=== PATIENT | female | born 1945 | race Caucasian/White ===

== ENCOUNTER 2017-12-30 14:28 | Observation (INO) | payer MEDICARE, OTHER ==
[2017-12-30] MEDS ORDERED: BABY ASPIRIN 81 MG CHEW PO ONE (14:51)
[2017-12-30] MEDS ORDERED: BABY ASPIRIN 81 MG CHEW ONE (14:56)
--- NOTE | 2017-12-30 15:03 | ERPHSYRPT ---
- History of Present Illness Time Seen by Provider: 12/30/17 14:46 Source: patient, family () Patient Subjective Stated Complaint: PT REPORTS SUDDEN ONSET OF WEAKNESS-BACK PAIN-PRESSURE IN CHEST-INCEASED SOB-LIGHTHEADED-"FUZZY FEELING"-STATES THAT SHE FEELS A LITTLE BETTER BUT STILL VERY WEAK DIZZY WITH MOVEMENT-DENIES RECENT ILLNESS-STATES THAT PAIN HAS SUBSIDED Triage Nursing Assessment: PT PALE WARM ET [id number] QUESTIONS CORRECTLY-RESP SLIGHTLY LABORED-ABLE TO SPEAK IN COMPLETE SENTENCES WITH EASE- NO FACIAL DROOP NOTED-MOVING ALL EXTREMITIES WITH EASE-PT GAIT UNSTEADY WHILE TRANSFERRING TO ER BED Physician History: CC: weakness Hx: 72 y/o patient of Dr Brittney Kerr. She has remote hx of PE after lumbar surgery and breast CA 20 years ago. She was at home and had a feeling of back aching, shortness of breath. The pain is gone. She feels overwhelming fatigue which continues. No fever, chills, cough, or injury. No abd pain. No chest pain. Timing/Duration: today Severity: moderate Allergies/Adverse Reactions: cephalexin [From Keflex] Allergy (Intermediate, Verified 12/30/17 14:50) Hives morphine Allergy (Intermediate, Verified 12/30/17 14:50) HTN Penicillins Allergy (Intermediate, Verified 12/30/17 14:50) Hives Sulfa (Sulfonamide Antibiotics) Allergy (Intermediate, Verified 12/30/17 14:50) Hives Home Medications: No Reportable Medications [No Reported Medications] 12/30/17 [History] Hx Tetanus, Diphtheria Vaccination/Date Given: Yes Hx Influenza Vaccination/Date Given: Yes (2016) Hx Pneumococcal Vaccination/Date Given: Yes Immunizations Up to Date: Yes - Review of Systems Constitutional: Fatigue, Malaise, Weakness (general), No Fever, No Chills Eyes: No Symptoms, No Vision Changes Respiratory: Dyspnea, No Cough Cardiac: No Chest Pain Abdominal/Gastrointestinal: No Abdominal Pain, No Nausea, No Vomiting Skin: No Rash Neurological: Dizziness (lightheadedness), No Focal Weakness, No Headache, No Parasthesia All Other Systems: Reviewed and Negative - Past Medical History Pertinent Past Medical History: Yes Musculoskeletal History: Osteoarthritis Female Reproductive Disorders: Breast Cancer Other Medical History: PMR - Past Surgical History Past Surgical History: Yes Musculoskeletal: Orthopedic Surgery Other Surgical History: BACK SURGERY, RADICAL BILATERAL MASTECTOMY - Social History Smoking Status: Former smoker Exposure to second hand smoke: No Drug Use: none Patient Lives Alone: No - Female History Hx Now: No - Nursing Vital Signs Nursing Vital Signs: Initial Vital Signs Temperature 97.4 F 12/30/17 14:42 Pulse Rate 79 12/30/17 14:42 Respiratory Rate 22 12/30/17 14:42 Blood Pressure 156/87 12/30/17 14:42 O2 Sat by Pulse Oximetry 98 12/30/17 14:42 Pain Scale Pain Intensity 1 - Physical Exam General Appearance: alert Eye Exam: PERRL/EOMI Ears, Nose, Throat Exam: normal ENT inspection, moist mucous membranes Neck Exam: normal inspection, non-tender, supple Respiratory Exam: normal breath sounds, lungs clear Cardiovascular Exam: regular rate/rhythm, No murmur Gastrointestinal/Abdomen Exam: soft, No tenderness, No distention Back Exam: normal inspection, No CVA tenderness, No vertebral tenderness Extremity Exam: normal inspection, normal range of motion, No calf tenderness Neurologic Exam: alert, oriented x 3, cooperative, sensation nml, No motor deficits Skin Exam: warm, dry, No rash SpO2 Interpretation: normal SpO2: 98 Oxygen Delivery: Room Air - Course Nursing assessment & vital signs reviewed: Yes EKG Interpreted by Me: RATE (76), Sinus Rhythm, NORMAL AXIS, LAFB, NORMAL INTERVALS (QTc 448), Non-specific ST Changes - Radiology Exams cxr X-ray Interpretation: Interpreted by me, Negative, Nml Mediastinum Ordered Tests: Active Orders 24 hr Category Date Time Status Steam Trap Man STAT Care 12/30/17 14:52 Active EKG-ER Only STAT Care 12/30/17 14:51 Active IV Insertion STAT Care 12/30/17 14:51 Active Pulse Oximetry (ED) STAT Care 12/30/17 14:51 Active CHEST 1 VIEW (PORTABLE) Stat Exams 12/30/17 14:52 Taken CBC W DIFF Stat Lab 12/30/17 15:00 Completed CMP Routine Lab 12/30/17 15:00 Completed D-DIMER QUANTITATION Stat Lab 12/30/17 15:00 Completed NT PRO BNP Routine Lab 12/30/17 15:00 Completed PROTIME WITH INR Stat Lab 12/30/17 15:00 Completed PTT Stat Lab 12/30/17 15:00 Completed TROPONIN Q3H Lab 12/30/17 15:00 Completed TROPONIN Q3H Lab 12/30/17 18:00 Ordered TROPONIN Q3H Lab 12/30/17 21:00 Ordered TROPONIN Q3H Lab 12/31/17 00:00 Ordered TROPONIN Q3H Lab 12/31/17 03:00 Ordered Medication Summary Discontinued Medications Generic Name Dose Route Start Last Admin Trade Name Natali PRN Reason Stop Dose Admin Aspirin 162 mg 12/30/17 14:51 12/30/17 14:57 Baby Aspirin 81 Mg Chew PO 12/30/17 14:52 162 mg STAT ONE Administration Aspirin Confirm 12/30/17 14:56 Baby Aspirin 81 Mg Chew Administered 12/30/17 14:57 Dose 162 mg .ROUTE .STSphere 3d-Osprey Spill Control ONE Lab/Rad Data: Laboratory Result Diagrams 12/30/17 15:00 12/30/17 15:00 Laboratory Results 12/30/17 12/30/17 12/30/17 Range/Units 15:00 15:00 15:00 WBC 5.9 (4.0-10.5) K/mm3 RBC 4.22 (4.1-5.4) M/mm3 Hgb 12.6 (12.0-16.0) gm/dl Hct 38.4 (35-47) % MCV 91.0 (78-100) fl MCH 29.9 (26-32) pg MCHC 32.8 (32-36) g/dl RDW 15.5 H (11.5-14.0) % Plt Count 248 (150-450) K/mm3 MPV 9.6 H (6-9.5) fl Gran % 58.6 (36.0-66.0) % Lymphocytes % 26.9 (24.0-44.0) % Monocytes % 9.7 (0.0-12.0) % Eosinophils % 4.1 (0.00-5.0) % Basophils % 0.7 (0.0-0.4) % Basophils # 0.04 (0-0.4) INR 1.13 (0.8-3.0) APTT 28.0 (25.3-37.0) SECONDS D-Dimer 307.16 (0-500) ng/mL Sodium 136 (136-145) mEq/L Potassium 3.6 (3.5-5.1) mEq/L Chloride 105 (98-107) mEq/L Carbon Dioxide 24.7 (21-32) mEq/L Anion Gap 10.3 (5-15) MEQ/L BUN 20 (9-20) mg/dL Creatinine 1.00 (0.55-1.30) mg/dl Estimated GFR 58 ML/MIN Glucose 132 H (70-110) MG/DL Calcium 9.4 (8.5-10.1) mg/dL Total Bilirubin 0.30 (0.2-1.0) mg/dL AST 20 (15-37) U/L ALT 17 (12-78) U/L Alkaline Phosphatase 82 (46-116) U/L Troponin I < 0.017 (0.000-0.056) ng/ml NT-Pro-B Natriuret Pep 146 H (0-125) pg/ml Serum Total Protein 7.1 (6.4-8.2) gm/dL Albumin 3.6 (3.4-5.0) g/dL - Progress Progress Note: 12/30/17 16:00 Stable and without symptoms at present. She did report chest pressure to nurse earlier. Studies reassuring. Will place in tele obs for serial troponins and further workup. Called Dr Cassandra Fuller (oc). Counseled pt/family regarding: lab results, diagnosis, need for follow-up, rad results - Departure Time of Disposition: 16:01 Departure Disposition: Observation (Tele) Clinical Impression: Chest pain, rule out acute myocardial infarction Condition: Stable Critical Care Time: No Referrals: GABE KERR [Primary Care Provider] -
[2017-12-30 15:25] LABS: INR 1.13 (0.8-3.0)
[2017-12-30 15:27] LABS: D-DIMER QUANTITATION 307.16 ng/mL (0-500)
[2017-12-30 15:31] LABS: BASOPHIL % 0.7 % (0.0-0.4); Basophil (Absolute #) 0.04 (0-0.4); Eosinophil % 4.1 % (0.00-5.0); Eosinophil (Absolute #) 0.24 (0-0.5); Granulocyte Absolute (ANC) 3.45 (1.4-6.9); Granulocytes % 58.6 % (36.0-66.0); Hematocrit 38.4 % (35-47); Hemoglobin 12.6 gm/dl (12.0-16.0); Lymphocyte (Absolute #) 1.58 (1.0-4.6); Lymphocytes % 26.9 % (24.0-44.0); Mean Corpuscular Hemoglobin 29.9 pg (26-32); Mean Corpuscular Hgb Concent. 32.8 g/dl (32-36); Mean Platelet Volume 9.6 fl (6-9.5); Monocyte (Absolute #) 0.57 (0.0-1.3); Monocytes % 9.7 % (0.0-12.0); Platelet Count 248 K/mm3 (150-450); Red Blood Count 4.22 M/mm3 (4.1-5.4); Red Cell Distribution Width 15.5 % (11.5-14.0); White Blood Count 5.9 K/mm3 (4.0-10.5)
[2017-12-30 15:37] LABS: ALBUMIN 3.6 g/dL (3.4-5.0); ALKALINE PHOSPHATASE 82 U/L (46-116); ANION GAP 10.3 MEQ/L (5-15); BLOOD UREA NITROGEN 20 mg/dL (9-20); CHLORIDE 105 mEq/L (98-107); Calcium 9.4 mg/dL (8.5-10.1); Carbon Dioxide 24.7 mEq/L (21-32); EST GLOMERULAR FILTRATION RATE 58 ML/MIN; Glucose 132 MG/DL (70-110); NT PRO BNP 146 pg/ml (0-125); Potassium 3.6 mEq/L (3.5-5.1); SGOT/AST 20 U/L (15-37); SGPT/ALT 17 U/L (12-78); SODIUM 136 mEq/L (136-145); Total Protein 7.1 gm/dL (6.4-8.2)
[2017-12-30 15:38] LABS: TROPONIN < 0.017 ng/ml (0.000-0.056)
--- NOTE | 2017-12-30 16:09 | XRAY ---
Indication: Short of breath. Back pain. Left breast cancer with mastectomy. Comparison: None Portable chest is clear. Heart and mediastinal structures within normal limits. Bony thorax intact with mild osteopenia and degenerative changes. Impression: Nonacute chest with chronic features.
[2017-12-30] MEDS ORDERED: Senokot-S Tablet PO PRN (17:18)
[2017-12-30] MEDS ORDERED: TYLENOL 325 MG PO PRN (17:18)
[2017-12-30] MEDS ORDERED: MILK OF MAGNESIA 30 ML PO PRN (17:18)
[2017-12-30] MEDS ORDERED: Zofran 4 MG/2 ML VIAL IV PRN (17:18)
[2017-12-30] MEDS ORDERED: MAALOX ES 30 ML UNIT DOSE PO PRN (17:18)
[2017-12-30] MEDS: Sodium Chloride 0.9% 10 ML FLUSH Syringe IV SCH (21:49)
[2017-12-30] MEDS: Pepcid 20 MG PO SCH (21:49)
[2017-12-31 04:16] LABS: Risk Ratio 3.1
[2017-12-31] MEDS: Sodium Chloride 0.9% 10 ML FLUSH Syringe IV SCH (05:32)
[2017-12-31] MEDS ORDERED: VITA-BEE WITH C PO SCH (10:00)
[2017-12-31] MEDS ORDERED: VITAMIN D PO SCH (10:00)
[2017-12-31] MEDS ORDERED: Ecotrin 325 MG PO SCH (10:00)
[2017-12-31] MEDS ORDERED: VITAMIN B COMPLEX PO SCH (10:00)
[2017-12-31] MEDS ORDERED: Vitamin E 400 UNIT SOFTGEL PO SCH (10:00)
[2017-12-31] MEDS ORDERED: VITAMIN E 1000 UNIT PO SCH (10:00)
[2017-12-31] MEDS: Pepcid 20 MG PO SCH (10:01)
--- NOTE | 2017-12-31 11:50 | PCM.SSS ---
History of Present Illness - Chief Complaint Chief Complaint: Chest Pain Rule out NC History of Present Illness: is a 72 year old female.She has remote hx of PE after lumbar surgery and breast CA 20 years ago. She was at home and had a feeling of back aching, shortness of breath. The pain is gone. She feels overwhelming fatigue which continues. No fever, chills, cough, or injury. No abd pain. No chest pain. - Review of Systems Constitutional: No Fever, No Chills Eyes: No Symptoms Ears, Nose, & Throat: No Symptoms Respiratory: No Cough, No Short Of Breath Cardiac: No Chest Pain, No Edema, No Syncope Abdominal/Gastrointestinal: No Abdominal Pain, No Nausea, No Vomiting, No Diarrhea Genitourinary Symptoms: No Dysuria Musculoskeletal: No Back Pain, No Neck Pain Skin: No Rash Neurological: No Dizziness, No Focal Weakness, No Sensory Changes Psychological: No Symptoms Endocrine: No Symptoms Hematologic/Lymphatic: No Symptoms Immunological/Allergic: No Symptoms Medications & Allergies Home Medications: Home Medication List Cholecalciferol (Vitamin D3) [Vitamin D3] 1,000 unit PO DAILY 12/30/17 [History Confirmed 12/30/17] Vitamin B Complex [B Complex] 1 each PO DAILY 12/30/17 [History Confirmed ] Vitamin E (Dl,Tocopheryl Acet) [Vitamin E] 1,000 unit PO DAILY 12/30/17 [ History Confirmed 12/30/17] Allergies/Adverse Reactions: Allergies Allergy/AdvReac Type Severity Reaction Status Date / Time cephalexin [From Keflex] Allergy Intermediate Hives Verified 12/30/17 14:50 morphine Allergy Intermediate HTN Verified 12/30/17 14:50 Penicillins Allergy Intermediate Hives Verified 12/30/17 14:50 Sulfa (Sulfonamide Allergy Intermediate Hives Verified 12/30/17 14:50 Antibiotics) - Past Medical History Past Medical History: Yes Neurological History: No Pertinent History ENT History: Cataracts Cardiac History: Deep Vein Thrombosis Respiratory History: No Pertinent History Endocrine Medical History: No Pertinent History Musculoskelatal History: Osteoarthritis GI Medical History: Esophageal Disorder, Ulcer History: No Pertinent History Pyscho-Social History: No Pertinent History Reproductive Disorders: Breast Cancer Comment: cataract surgery 2016, radical mast. Left breast 1997, Back Surgery/ ruptured disk L5 1994 - Female History Are you now?: No - Past Surgical History Past Surgical History: Yes Neuro Surgical History: No Pertinent History Cardiac History: No Pertinent History Respiratory Surgery: No Pertinent History GI Surgical History: No Pertinent History Genitourinary Surgical Hx: No Pertinent History Musculskeletal Surgical Hx: Other Female Surgical History: Mastectomy Other Surgical History: Right wrist broken 2010 - Social History Smoking Status: Former smoker Exposure to second hand smoke: No Alcohol: Rarely Drug Use: none - Physical Exam Vital Signs: Vital Signs - 24 hr Temp Pulse Resp BP Pulse Ox 12/31/17 08:00 98.5 F 74 14 121/70 97 12/31/17 04:00 97.9 F 68 16 127/69 95 12/31/17 00:00 97.8 F 71 16 111/62 96 12/30/17 20:00 98 F 76 16 115/68 94 L 12/30/17 17:41 97.3 F 73 20 154/79 97 12/30/17 17:11 97.3 F 73 20 154/79 97 12/30/17 17:09 97.3 F 73 20 154/79 97 12/30/17 16:40 68 16 122/76 97 12/30/17 16:01 98 12/30/17 15:24 75 18 138/83 12/30/17 14:59 98 12/30/17 14:42 97.4 F 79 22 156/87 98 General Appearance: no apparent distress, alert Neurologic Exam: alert, oriented x 3, cooperative, normal mood/affect, nml cerebellar function, nml station & gait, sensation nml, No motor deficits Eye Exam: PERRL/EOMI, eyes nml inspection Ears, Nose, Throat Exam: normal ENT inspection, TMs normal, pharynx normal, moist mucous membranes Neck Exam: normal inspection, non-tender, supple, full range of motion Respiratory Exam: normal breath sounds, lungs clear, No respiratory distress Cardiovascular Exam: regular rate/rhythm, normal heart sounds, normal peripheral pulses Gastrointestinal/Abdomen Exam: soft, normal bowel sounds, No tenderness, No mass Back Exam: normal inspection, normal range of motion, No CVA tenderness, No vertebral tenderness Extremity Exam: normal inspection, normal range of motion, pelvis stable Skin Exam: normal color, warm, dry, No rash Lymphatic Exam: No adenopathy Results - Labs Lab/Micro Results: Lab Results-Last 24 Hours 12/30/17 12/30/17 12/31/17 Range/Units 18:00 21:30 00:05 Troponin I < 0.017 < 0.017 < 0.017 (0.000-0.056) ng/ml Triglycerides (30-200) mg/dL Cholesterol (100-200) mg/dL LDL Cholesterol (5-99) mg/dL HDL Cholesterol (35-60) mg/dL Heart Disease Risk Ratio 12/31/17 12/31/17 Range/Units 03:00 03:15 Troponin I < 0.017 (0.000-0.056) ng/ml Triglycerides 82 (30-200) mg/dL Cholesterol 210 H (100-200) mg/dL LDL Cholesterol 123 H (5-99) mg/dL HDL Cholesterol 67 H (35-60) mg/dL Heart Disease Risk Ratio 3.1 - Other Procedures and Tests Respiratory Therapy 12/30/17 23:00 EKG ONCE 12/31/17 05:00 EKG ONCE 01/01/18 05:00 EKG ONCE 01/02/18 05:00 EKG ONCE Assessment/Plan (1) Chest pain, rule out acute myocardial infarction Current Visit: Yes Status: Acute Code(s): R07.9 - CHEST PAIN, UNSPECIFIED Hospital Summary - Hospital Course Hospital Course: Chief Complaint Diagnosis Chest Pain Rule out NC Allergies Allergy/AdvReac Type Severity Reaction Status Date / Time cephalexin [From Keflex] Allergy Intermediate Hives Verified 12/30/17 14:50 morphine Allergy Intermediate HTN Verified 12/30/17 14:50 Penicillins Allergy Intermediate Hives Verified 12/30/17 14:50 Sulfa (Sulfonamide Allergy Intermediate Hives Verified 12/30/17 14:50 Antibiotics) Vital Signs (Last 24 hours) Temp Pulse Resp BP Pulse Ox 12/31/17 08:00 98.5 F 74 14 121/70 97 12/31/17 04:00 97.9 F 68 16 127/69 95 12/31/17 00:00 97.8 F 71 16 111/62 96 12/30/17 20:00 98 F 76 16 115/68 94 L 12/30/17 17:41 97.3 F 73 20 154/79 97 12/30/17 17:11 97.3 F 73 20 154/79 97 12/30/17 17:09 97.3 F 73 20 154/79 97 12/30/17 16:40 68 16 122/76 97 12/30/17 16:01 98 12/30/17 15:24 75 18 138/83 12/30/17 14:59 98 12/30/17 14:42 97.4 F 79 22 156/87 98 Home Medications Medication Instructions Recorded Confirmed Last Taken Type Cholecalciferol (Vitamin D3) 1,000 unit PO DAILY 12/30/17 12/30/17 12/30/17 09: 00 History [Vitamin D3] Vitamin B Complex [B Complex] 1 each PO DAILY 12/30/17 12/30/17 12/30/17 09:00 History Vitamin E (Dl,Tocopheryl Acet) 1,000 unit PO DAILY 12/30/17 12/30/17 12/30/17 09 :00 History [Vitamin E] Current Medications Generic Name Dose Route Start Last Admin Trade Name Freq PRN Reason Stop Dose Admin Acetaminophen 650 mg 12/30/17 17:18 Tylenol 325 Mg PO 01/29/18 17:17 Q4H PRN PRN PAIN AND/OR FEVER Al Hydrox/Mg Hydrox/Simethicone 30 ml 12/30/17 17:18 Maalox Es 30 Ml Unit Dose PO 01/29/18 17:17 Q4H PRN PRN INDIGESTION Aspirin 325 mg 12/31/17 10:00 12/31/17 09:58 Ecotrin 325 Mg PO 01/30/18 09:59 325 mg DAILY MARTÍNEZ Administration Cholecalciferol 1,000 unit 12/31/17 10:00 12/31/17 09:58 Vitamin D PO 01/30/18 09:59 1,000 unit DAILY MARTÍNEZ Administration Famotidine 20 mg 12/30/17 22:00 12/31/17 10:01 Pepcid 20 Mg PO 01/29/18 21:59 Not Given BID MARTÍNEZ Magnesium Hydroxide 30 - 60 ml 12/30/17 17:18 Milk Of Magnesia 30 Ml PO 01/29/18 17:17 QDP PRN CONSTIPATION Multivitamins 1 tab 12/31/17 10:00 12/31/17 10:02 Pilar-Bee With C PO 01/30/18 09:59 1 tab DAILY MARTÍNEZ Administration Ondansetron HCl 4 mg 12/30/17 17:18 Zofran 4 Mg/2 Ml Vial IV 01/29/18 17:17 Q4H PRN PRN NAUSEA/VOMITING Senna/Docusate Sodium 2 udtab 12/30/17 17:18 Senokot-S Tablet PO 01/29/18 17:17 BID PRN PRN CONSTIPATION Sodium Chloride 10 ml 12/30/17 22:00 12/31/17 05:32 Sodium Chloride 0.9% 10 Ml Flush Syringe IV 01/29/18 21:59 10 ml Q8HT MARTÍNEZ Administration Vitamin E 800 u 12/31/17 10:00 12/31/17 10:01 Vitamin E 400 Unit Softgel PO 01/30/18 09:59 800 u DAILY MARTÍNEZ Administration Discontinued Medications Generic Name Dose Route Start Last Admin Trade Name Freq PRN Reason Stop Dose Admin Aspirin 162 mg 12/30/17 14:51 12/30/17 14:57 Baby Aspirin 81 Mg Chew PO 12/30/17 14:52 162 mg STAT ONE Administration Aspirin Confirm 12/30/17 14:56 Baby Aspirin 81 Mg Chew Administered 12/30/17 14:57 Dose 162 mg .ROUTE .STK-MED ONE Intake & Output (Last 24 hours) 12/28/17 12/29/17 12/30/17 12/31/17 11:59 11:59 11:59 11:59 Intake Total 290 Balance 290 Weight 56.7 kg Laboratory Results (Last 24 hours) 12/31/17 12/31/17 12/31/17 03:15 03:00 00:05 WBC RBC Hgb Hct MCV MCH MCHC RDW Plt Count MPV Gran % Lymphocytes % Monocytes % Eosinophils % Basophils % Basophils # INR APTT D-Dimer Sodium Potassium Chloride Carbon Dioxide Anion Gap BUN Creatinine Estimated GFR Glucose Calcium Total Bilirubin AST ALT Alkaline Phosphatase Troponin I < 0.017 < 0.017 NT-Pro-B Natriuret Pep Serum Total Protein Albumin Triglycerides 82 Cholesterol 210 H LDL Cholesterol 123 H HDL Cholesterol 67 H Heart Disease Risk Ratio 3.1 12/30/17 12/30/17 12/30/17 21:30 18:00 15:00 WBC RBC Hgb Hct MCV MCH MCHC RDW Plt Count MPV Gran % Lymphocytes % Monocytes % Eosinophils % Basophils % Basophils # INR APTT D-Dimer Sodium 136 Potassium 3.6 Chloride 105 Carbon Dioxide 24.7 Anion Gap 10.3 BUN 20 Creatinine 1.00 Estimated GFR 58 Glucose 132 H Calcium 9.4 Total Bilirubin 0.30 AST 20 ALT 17 Alkaline Phosphatase 82 Troponin I < 0.017 < 0.017 < 0.017 NT-Pro-B Natriuret Pep 146 H Serum Total Protein 7.1 Albumin 3.6 Triglycerides Cholesterol LDL Cholesterol HDL Cholesterol Heart Disease Risk Ratio 12/30/17 12/30/17 15:00 15:00 WBC 5.9 RBC 4.22 Hgb 12.6 Hct 38.4 MCV 91.0 MCH 29.9 MCHC 32.8 RDW 15.5 H Plt Count 248 MPV 9.6 H Gran % 58.6 Lymphocytes % 26.9 Monocytes % 9.7 Eosinophils % 4.1 Basophils % 0.7 Basophils # 0.04 INR 1.13 APTT 28.0 D-Dimer 307.16 Sodium Potassium Chloride Carbon Dioxide Anion Gap BUN Creatinine Estimated GFR Glucose Calcium Total Bilirubin AST ALT Alkaline Phosphatase Troponin I NT-Pro-B Natriuret Pep Serum Total Protein Albumin Triglycerides Cholesterol LDL Cholesterol HDL Cholesterol Heart Disease Risk Ratio Orders (Last 24 hours) Category Date Time Status Bedrest with BRP/BSC ROUTINE Activity 12/30/17 17:18 Active Admission/Status Order ROUTINE Care 12/30/17 17:18 Active Call Admit Doctor for Orders ROUTINE Care 12/30/17 17:18 Active Heat Treat Operator STAT Care 12/30/17 14:52 Completed Code Status Order ROUTINE Care 12/30/17 17:18 Active EKG-ER Only STAT Care 12/30/17 14:51 Completed IV Care Q6H Care 12/30/17 17:18 Active IV Insertion STAT Care 12/30/17 14:51 Completed Implement Chest Pain Pathway ROUTINE Care 12/30/17 17:18 Active Pulse Oximetry (ED) STAT Care 12/30/17 14:51 Completed Kyle Thornton ROUTINE Care 12/30/17 17:18 Active Telemetry ROUTINE Care 12/30/17 17:18 Active Weight,Daily 0600 Care 12/30/17 17:18 Active Cardiac Diet Diet 12/30/17 Dinner Active CHEST 1 VIEW (PORTABLE) Stat Exams 12/30/17 14:52 Completed CBC W DIFF Stat Lab 12/30/17 15:00 Completed CMP Routine Lab 12/30/17 15:00 Completed D-DIMER QUANTITATION Stat Lab 12/30/17 15:00 Completed LIPID PROFILE AM.LAB Lab 12/31/17 03:15 Completed NT PRO BNP Routine Lab 12/30/17 15:00 Completed PROTIME WITH INR Stat Lab 12/30/17 15:00 Completed PTT Stat Lab 12/30/17 15:00 Completed TROPONIN Q3H Lab 12/30/17 15:00 Completed TROPONIN Q3H Lab 12/30/17 18:00 Completed TROPONIN Q3H Lab 12/30/17 21:30 Completed TROPONIN Q3H Lab 12/31/17 00:05 Completed TROPONIN Q3H Lab 12/31/17 03:00 Completed Acetaminophen 325 mg [Tylenol 325 mg] Med 12/30/17 17:18 Active 650 mg PO Q4H PRN PRN Aspirin 81 gm Chew [Baby Aspirin 81 mg Chew] Med 12/30/17 14:56 Discontinued 162 mg .ROUTE .STK-MED ONE Aspirin 81 gm Chew [Baby Aspirin 81 mg Chew] Med 12/30/17 14:51 Discontinued 162 mg PO STAT ONE Aspirin EC 325 mg [Ecotrin 325 MG] Med 12/31/17 10:00 Active 325 mg PO DAILY Cholecalciferol (Vitamin D3) [Vitamin D] Med 12/31/17 10:00 Active 1,000 unit PO DAILY Famotidine 20 mg [Pepcid 20 MG] Med 12/30/17 22:00 Active 20 mg PO BID Mag Hydrox/Al Hydrox/Simeth [Maalox Es 30 ml Unit Med 12/30/17 17:18 Active Dose] 30 ml PO Q4H PRN PRN Magnesium Hydroxide 30 ml [Milk of Magnesia 30 ml Med 12/30/17 17:18 Active ] 30 - 60 ml PO QDP PRN NaCl 0.9% 10 ML FLUSH [Sodium Chloride 0.9% 10 ML FLUSH Med 12/30/17 22:00 Active Syringe] 10 ml IV Q8HT Ondansetron HCl 4 mg/2 ml [Zofran 4 MG/2 ML VIAL] Med 12/30/17 17:18 Active 4 mg IV Q4H PRN PRN Senna/Docusate Sodium Tab [Senokot-S Tablet] Med 12/30/17 17:18 Active 2 udtab PO BID PRN PRN Vitamin B Comp W-C [Pilar-Bee with C] Med 12/31/17 10:00 Active 1 tab PO DAILY Vitamin E 400 Units [Vitamin E 400 UNIT SOFTGEL] Med 12/31/17 10:00 Active 800 u PO DAILY EKG ONCE RT 12/30/17 23:00 Active EKG ONCE RT 12/31/17 05:00 Active EKG ONCE RT 01/01/18 05:00 Active EKG ONCE RT 01/02/18 05:00 Active Patient Care Notes (Last 24 hours) 12/30/17 18:47 Nursing Note by Shikha Mayorga Called Dr Carlos Fuller concerning pt's home med list; new orders received. Initialized on 12/30/17 18:47 - END OF NOTE - Vitals & Intake/Output Vital Signs: Vital Signs Temperature 98.5 F 12/31/17 08:00 Pulse Rate 74 12/31/17 08:00 Respiratory Rate 14 12/31/17 08:00 Blood Pressure 121/70 12/31/17 08:00 O2 Sat by Pulse Oximetry 97 12/31/17 08:00 Intake & Output: Intake & Output 12/28/17 12/29/17 12/30/17 12/31/17 11:59 11:59 11:59 11:59 Intake Total 290 Balance 290 Weight 56.7 kg - Lab Result Diagrams: 12/30/17 15:00 12/30/17 15:00 Lab Results-Last 24 Hrs: Lab Results-Last 24 Hours 12/30/17 12/30/17 12/31/17 Range/Units 18:00 21:30 00:05 Troponin I < 0.017 < 0.017 < 0.017 (0.000-0.056) ng/ml Triglycerides (30-200) mg/dL Cholesterol (100-200) mg/dL LDL Cholesterol (5-99) mg/dL HDL Cholesterol (35-60) mg/dL Heart Disease Risk Ratio 12/31/17 12/31/17 Range/Units 03:00 03:15 Troponin I < 0.017 (0.000-0.056) ng/ml Triglycerides 82 (30-200) mg/dL Cholesterol 210 H (100-200) mg/dL LDL Cholesterol 123 H (5-99) mg/dL HDL Cholesterol 67 H (35-60) mg/dL Heart Disease Risk Ratio 3.1 - Procedures and Test Procedures and Tests throughout Hospitalization: Therapy Orders & Screens 12/30/17 23:00 EKG ONCE Comment: 12/31/17 05:00 EKG ONCE Comment: 01/01/18 05:00 EKG ONCE Comment: 01/02/18 05:00 EKG ONCE Comment: - Discharge Disposition: Home, Self-Care Condition: Stable Prescriptions: No Action Vitamin E (Dl,Tocopheryl Acet) [Vitamin E] 1,000 unit PO DAILY Vitamin B Complex [B Complex] 1 each PO DAILY Cholecalciferol (Vitamin D3) [Vitamin D3] 1,000 unit PO DAILY Follow up with: GABE KERR [Primary Care Provider] -
[2017-12-31 12:46] VITALS: BP 136/88; PULSE 78; O2SAT 96
== END 2017-12-31 13:20 | disposition home or self-care (01) ==
LOC: ED 14:28 → MED SURG 17:08
PROVIDERS: ADMIT General Practice; ATTEND General Practice
DX: R07.9 Chest pain, unspecified (principal); Z85.3 Personal history of malignant neoplasm of breast
CPT/HCPCS: 36000; 36415; 71045; 80053; 80061; 83721; 83880; 84484; 85025; 85379; 85610; 85730; 93005; 93041; 93268; 99285; G0378; A9270-GY

== ENCOUNTER 2019-01-31 07:30 | Observation (INO) | payer MEDICARE, OTHER ==
[2019-01-31] MEDS ORDERED: Zofran 4 MG/2 ML VIAL IV ONE (08:07)
[2019-01-31] MEDS ORDERED: SUBLIMAZE 100 MCG/2 ML IV ONE (08:12)
[2019-01-31] MEDS ORDERED: Zofran 4 MG/2 ML VIAL ONE (08:15)
[2019-01-31] MEDS ORDERED: SUBLIMAZE 100 MCG/2 ML ONE (08:16)
[2019-01-31 08:21] LABS: BASOPHIL % 0.5 % (0.0-0.4); Basophil (Absolute #) 0.04 (0-0.4); Eosinophil % 5.1 % (0.00-5.0); Eosinophil (Absolute #) 0.44 (0-0.5); Granulocyte Absolute (ANC) 6.11 (1.4-6.9); Granulocytes % 70.3 % (36.0-66.0); Hematocrit 39.6 % (35-47); Hemoglobin 12.7 gm/dl (12.0-16.0); Lymphocyte (Absolute #) 1.24 (1.0-4.6); Lymphocytes % 14.3 % (24.0-44.0); Mean Cell Volume 92.1 fl (78-100); Mean Corpuscular Hemoglobin 29.5 pg (26-32); Mean Corpuscular Hgb Concent. 32.1 g/dl (32-36); Monocyte (Absolute #) 0.85 (0.0-1.3); Monocytes % 9.8 % (0.0-12.0); Platelet Count 205 K/mm3 (150-450); Red Cell Distribution Width 13.6 % (11.5-14.0); White Blood Count 8.7 K/mm3 (4.0-10.5)
[2019-01-31] MEDS: Sodium Chloride 0.9% 1000 ML 1,000 ML IV SCH ×2 (08:23→21:10)
[2019-01-31 08:26] LABS: Appearance CLEAR (CLEAR); Bacteria RARE /HPF (NEGATIVE); Bilirubin NEGATIVE (NEGATIVE); Blood NEGATIVE Ery/ul (0-5); Glucose NEGATIVE (NEGATIVE); Ketones SMALL (NEGATIVE); Leukocyte Esterase TRACE (NEGATIVE); Mucus SLIGHT /HPF (NEGATIVE); Nitrite NEGATIVE (NEGATIVE); Protein,Urine Dip NEGATIVE (Negative); Specific Gravity 1.013 (1.005-1.025); Urobilinogen NEGATIVE mg/dL (0-1)
[2019-01-31 08:27] LABS: Epithelial Cells OCCASIONAL /HPF (FEW); RBC NONE SEEN /HPF (0-2)
--- NOTE | 2019-01-31 08:46 | ERPHSYRPT ---
- History of Present Illness Time Seen by Provider: 01/31/19 07:45 Historian: patient Exam Limitations: clinical condition Patient Subjective Stated Complaint: PT states "I think I have diverticulitis. I have diverticulosis and I have recently been on antibiotics and sunday I started to have diarrhea and my lower abdomen was hurting. Last nigt was the worst of the diarrhea." Triage Nursing Assessment: Pt alert and oriented X 3, skin pwd. PT ambulates with an upright steady gait, able to speak in full sentences. PT in no apparent respiratory distress. Physician History: PATIENT WITH A HISTORY OF DIVERTICULOSIS AND DIVERTICULITIS COMPLAINS OF ACUTE ONSET OF LEFT SIDED ABDOMINAL PAINS X 5 DAYS ASSOCIATED WITH WATERY DIARRHEA 4- 5 EPISODES DAILY. DENIES FEVER, NAUSEA, EMESIS OR URINARY SYMPTOMS. STATES PAIN SHARP CRAMPY DISCOMFORT PAIN SCALE 7/10. Timing/Duration: day(s) Activities at Onset: none Quality: cramping, sharpness Abdominal Pain Onset Location: LUQ, LLQ Pain Radiation: no radiation Severity of Pain-Max: moderate Severity of Pain-Current: moderate Modifying Factors: Improves With: defecating Associated Symptoms: diarrhea Previous symptoms: same symptoms as today Allergies/Adverse Reactions: cephalexin [From Keflex] Allergy (Intermediate, Verified 12/30/17 14:50) Hives morphine Allergy (Intermediate, Verified 12/30/17 14:50) HTN Penicillins Allergy (Intermediate, Verified 12/30/17 14:50) Hives Sulfa (Sulfonamide Antibiotics) Allergy (Intermediate, Verified 12/30/17 14:50) Hives Home Medications: Cholecalciferol (Vitamin D3) [Vitamin D3] 1,000 unit PO DAILY 12/30/17 [History] Vitamin B Complex [B Complex] 1 each PO DAILY 12/30/17 [History] Vitamin E (Dl,Tocopheryl Acet) [Vitamin E] 1,000 unit PO DAILY 12/30/17 [History ] Hx Tetanus, Diphtheria Vaccination/Date Given: Yes Hx Influenza Vaccination/Date Given: Yes Hx Pneumococcal Vaccination/Date Given: Yes Immunizations Up to Date: Yes - Review of Systems Constitutional: No Fever, No Chills Eyes: No Symptoms Ears, Nose, & Throat: No Symptoms Respiratory: No Symptoms, No Cough, No Dyspnea Cardiac: No Symptoms, No Chest Pain, No Edema, No Syncope Abdominal/Gastrointestinal: Abdominal Pain, No Nausea, No Vomiting, No Diarrhea Genitourinary Symptoms: No Symptoms, No Dysuria Musculoskeletal: No Symptoms, No Back Pain, No Neck Pain Skin: No Rash Neurological: No Dizziness, No Focal Weakness, No Sensory Changes Psychological: No Symptoms Endocrine: No Symptoms All Other Systems: Reviewed and Negative - Past Medical History Pertinent Past Medical History: Yes Neurological History: No Pertinent History ENT History: Cataracts Cardiac History: Deep Vein Thrombosis Respiratory History: No Pertinent History Endocrine Medical History: No Pertinent History Musculoskeletal History: Osteoarthritis GI Medical History: Esophageal Disorder, Ulcer History: No Pertinent History Psycho-Social History: No Pertinent History Female Reproductive Disorders: Breast Cancer Other Medical History: cataract surgery 2016, radical mast. Left breast 1997, Back Surgery/ ruptured disk L5 1994 - Past Surgical History Past Surgical History: Yes Neuro Surgical History: No Pertinent History Cardiac: No Pertinent History Respiratory: No Pertinent History Gastrointestinal: No Pertinent History Genitourinary: No Pertinent History Musculoskeletal: Other Female Surgical History: Mastectomy Other Surgical History: Right wrist broken 2010. left tonsil removed - Social History Smoking Status: Former smoker Exposure to second hand smoke: No Drug Use: none Patient Lives Alone: No - Female History Hx Now: No - Nursing Vital Signs Nursing Vital Signs: Initial Vital Signs Temperature 98.1 F 01/31/19 07:36 Pulse Rate 80 01/31/19 07:36 Respiratory Rate 16 01/31/19 07:36 Blood Pressure 141/83 01/31/19 07:36 O2 Sat by Pulse Oximetry 98 01/31/19 07:36 Pain Scale Pain Intensity 4 - Physical Exam General Appearance: no apparent distress, alert Eye Exam: PERRL/EOMI, eyes nml inspection Ears, Nose, Throat Exam: normal ENT inspection, pharynx normal, moist mucous membranes Neck Exam: normal inspection, non-tender, supple, full range of motion Respiratory Exam: normal breath sounds, lungs clear, No respiratory distress Cardiovascular Exam: regular rate/rhythm, normal heart sounds Gastrointestinal/Abdomen Exam: soft, No tenderness (LEFT LOWER ABDOMINAL TENDERNESS, HYPERACTIVE BOWEL SOUNDS, HIGH PITCHED), No mass Back Exam: normal inspection, normal range of motion, No CVA tenderness, No vertebral tenderness Extremity Exam: normal inspection, normal range of motion, pelvis stable Neurologic Exam: alert, oriented x 3, cooperative, normal mood/affect, nml cerebellar function, sensation nml, No motor deficits Skin Exam: normal color, warm, dry SpO2 Interpretation: normal SpO2: 98 - CT Exams Abdomen/Pelvis CT Interpretation: Discussed w/radiologist (DIFFUSE COLONIC BOWEL WALL THICKENING WITH MINIMAL STRANDING FAVORING COLITIS, NO FREE AIR OR FLUID) Ordered Tests: Active Orders 24 hr Category Date Time Status ABDOMEN AND PELVIS W CONTRAST [CT] Stat Exams 01/31/19 08:09 Completed AMYLASE Stat Lab 01/31/19 08:05 Completed BLOOD CULTURE Stat Lab 01/31/19 10:20 Received CBC W DIFF Stat Lab 01/31/19 08:05 Completed CMP Stat Lab 01/31/19 08:05 Completed LIPASE Stat Lab 01/31/19 08:05 Completed Occult Blood, Other Screening Stat Lab 01/31/19 09:45 Completed UA W/RFX UR CULTURE Stat Lab 01/31/19 08:05 Completed Transfer Order Routine Transfer 01/31/19 Ordered Medication Summary Generic Name Dose Route Start Last Admin Trade Name Freq PRN Reason Stop Dose Admin Sodium Chloride 1,000 mls @ 100 mls/hr 01/31/19 08:15 01/31/19 08:23 Sodium Chloride 0.9% 1000 Ml IV 03/02/19 08:14 100 mls/hr .Q10H MARTÍNEZ Administration Discontinued Medications Generic Name Dose Route Start Last Admin Trade Name Freq PRN Reason Stop Dose Admin Fentanyl Citrate 50 mcg 01/31/19 08:12 01/31/19 08:22 Sublimaze 100 Mcg/2 Ml IV 01/31/19 08:13 50 mcg STAT ONE Administration Fentanyl Citrate Confirm 01/31/19 08:16 Sublimaze 100 Mcg/2 Ml Administered 01/31/19 08:17 Dose 100 mcg .ROUTE .STK-MED ONE Levofloxacin/Dextrose 500 mg in 100 mls @ 100 mls/hr 01/31/19 10:10 01/31/19 11:32 Levofloxacin 500mg/100ml D5w IV 01/31/19 11:09 Infused STAT STA Infusion Metronidazole 500 mg in 100 mls @ 200 mls/hr 01/31/19 10:10 01/31/19 11:32 Flagyl 500 Mg Ivpb IV 01/31/19 10:39 Infused STAT STA Infusion Metronidazole Confirm 01/31/19 10:31 Flagyl 500 Mg Ivpb Administered 01/31/19 10:32 Dose 500 mg in 100 mls @ ud IV .STK-MED ONE Levofloxacin/Dextrose Confirm 01/31/19 10:31 Levofloxacin 500mg/100ml D5w Administered 01/31/19 10:32 Dose 500 mg in 100 mls @ ud IV .STK-MED ONE Ondansetron HCl 4 mg 01/31/19 08:07 01/31/19 08:22 Zofran 4 Mg/2 Ml Vial IV 01/31/19 08:08 4 mg STAT ONE Administration Ondansetron HCl Confirm 01/31/19 08:15 Zofran 4 Mg/2 Ml Vial Administered 01/31/19 08:16 Dose 4 mg .ROUTE .STK-MED ONE Lab/Rad Data: Laboratory Result Diagrams 01/31/19 08:05 01/31/19 08:05 Laboratory Results 01/31/19 01/31/19 01/31/19 Range/Units 09:45 09:45 08:05 WBC (4.0-10.5) K/mm3 RBC (4.1-5.4) M/mm3 Hgb (12.0-16.0) gm/dl Hct (35-47) % MCV (78-100) fl MCH (26-32) pg MCHC (32-36) g/dl RDW (11.5-14.0) % Plt Count (150-450) K/mm3 MPV (6-9.5) fl Gran % (36.0-66.0) % Eos # (Auto) (0-0.5) Absolute Lymphs (auto) (1.0-4.6) Absolute Monos (auto) (0.0-1.3) Lymphocytes % (24.0-44.0) % Monocytes % (0.0-12.0) % Eosinophils % (0.00-5.0) % Basophils % (0.0-0.4) % Absolute Granulocytes (1.4-6.9) Basophils # (0-0.4) Sodium (137-145) mmol/L Potassium (3.5-5.1) mmol/L Chloride (98-107) mmol/L Carbon Dioxide (22-30) mmol/L Anion Gap (5-15) MEQ/L BUN (7-17) mg/dL Creatinine (0.52-1.04) mg/dL Estimated GFR ML/MIN Glucose (74-106) mg/dL Calcium (8.4-10.2) mg/dL Total Bilirubin (0.2-1.3) mg/dL AST (14-36) U/L ALT (0-35) U/L Alkaline Phosphatase (38-126) U/L Serum Total Protein (6.3-8.2) g/dL Albumin (3.5-5.0) g/dL Amylase (30-110) U/L Lipase (23-300) U/L Urine Color YELLOW (YELLOW) Urine Appearance CLEAR (CLEAR) Urine pH 5.0 (5-6) Ur Specific [place] 1.013 (1.005-1.025) Urine Protein NEGATIVE (Negative) Urine Ketones SMALL (NEGATIVE) Urine Blood NEGATIVE (0-5) Rickie/ul Urine Nitrite NEGATIVE (NEGATIVE) Urine Bilirubin NEGATIVE (NEGATIVE) Urine Urobilinogen NEGATIVE (0-1) mg/dL Ur Leukocyte Esterase TRACE (NEGATIVE) Urine WBC (Auto) 3-5 (0-5) /HPF Urine RBC (Auto) NONE SEEN (0-2) /HPF U Epithel Cells (Auto) OCCASIONAL (FEW) /HPF Urine Bacteria (Auto) RARE (NEGATIVE) /HPF Urine Mucus (Auto) SLIGHT (NEGATIVE) /HPF Urine Culture Reflexed NO (NO) Urine Glucose NEGATIVE (NEGATIVE) mg/dL Stool Occult Blood NEGATIVE (Negative) Stl C. cayetanensis PCR NEGATIVE (NEGATIVE) Stl Adenov F 40/41 PCR NEGATIVE (NEGATIVE) Stool Astrovirus (PCR) NEGATIVE (NEGATIVE) Stool Cryptosporidium PCR NEGATIVE (NEGATIVE) Stool EPEC (PCR) NEGATIVE (NEGATIVE) Stool EAEC (PCR) NEGATIVE (NEGATIVE) Stl E. histolytica PCR NEGATIVE (NEGATIVE) Stl P. shigelloides PCR NEGATIVE (NEGATIVE) Stool Sapovirus (PCR) NEGATIVE (NEGATIVE) St Y.enterocolitica PCR NEGATIVE (NEGATIVE) Stool Vibrio (PCR) NEGATIVE (NEGATIVE) Stl Vibrio cholerae PCR NEGATIVE (NEGATIVE) Stl Norovirus GI/GII PCR NEGATIVE (NEGATIVE) Campylobacter (PCR) NEGATIVE (NEGATIVE) C. difficile Toxin A&B POSITIVE A (NEGATIVE) Enterotoxigenic E. coli NEGATIVE (NEGATIVE) E.coli Shiga Toxins NEGATIVE (NEGATIVE) Giardia lamblia NEGATIVE (NEGATIVE) Rotavirus A (PCR) NEGATIVE (NEGATIVE) Salmonella (PCR) NEGATIVE (NEGATIVE) Shigella (PCR) NEGATIVE (NEGATIVE) 01/31/19 01/31/19 01/31/19 Range/Units 08:05 08:05 08:05 WBC 8.7 (4.0-10.5) K/mm3 RBC 4.30 (4.1-5.4) M/mm3 Hgb 12.7 (12.0-16.0) gm/dl Hct 39.6 (35-47) % MCV 92.1 (78-100) fl MCH 29.5 (26-32) pg MCHC 32.1 (32-36) g/dl RDW 13.6 (11.5-14.0) % Plt Count 205 (150-450) K/mm3 MPV 10.0 H (6-9.5) fl Gran % 70.3 H (36.0-66.0) % Eos # (Auto) 0.44 (0-0.5) Absolute Lymphs (auto) 1.24 (1.0-4.6) Absolute Monos (auto) 0.85 (0.0-1.3) Lymphocytes % 14.3 L (24.0-44.0) % Monocytes % 9.8 (0.0-12.0) % Eosinophils % 5.1 H (0.00-5.0) % Basophils % 0.5 (0.0-0.4) % Absolute Granulocytes 6.11 (1.4-6.9) Basophils # 0.04 (0-0.4) Sodium 142 (137-145) mmol/L Potassium 3.9 (3.5-5.1) mmol/L Chloride 109 H (98-107) mmol/L Carbon Dioxide 24 (22-30) mmol/L Anion Gap 12.8 (5-15) MEQ/L BUN 11 (7-17) mg/dL Creatinine 0.69 (0.52-1.04) mg/dL Estimated GFR > 60.0 ML/MIN Glucose 103 (74-106) mg/dL Calcium 9.0 (8.4-10.2) mg/dL Total Bilirubin 0.60 (0.2-1.3) mg/dL AST 25 (14-36) U/L ALT 19 (0-35) U/L Alkaline Phosphatase 69 (38-126) U/L Serum Total Protein 7.4 (6.3-8.2) g/dL Albumin 4.1 (3.5-5.0) g/dL Amylase 50 (30-110) U/L Lipase 77 (23-300) U/L Urine Color (YELLOW) Urine Appearance (CLEAR) Urine pH (5-6) Ur Specific [place] (1.005-1.025) Urine Protein (Negative) Urine Ketones (NEGATIVE) Urine Blood (0-5) Rickie/ul Urine Nitrite (NEGATIVE) Urine Bilirubin (NEGATIVE) Urine Urobilinogen (0-1) mg/dL Ur Leukocyte Esterase (NEGATIVE) Urine WBC (Auto) (0-5) /HPF Urine RBC (Auto) (0-2) /HPF U Epithel Cells (Auto) (FEW) /HPF Urine Bacteria (Auto) (NEGATIVE) /HPF Urine Mucus (Auto) (NEGATIVE) /HPF Urine Culture Reflexed (NO) Urine Glucose (NEGATIVE) mg/dL Stool Occult Blood (Negative) Stl C. cayetanensis PCR (NEGATIVE) Stl Adenov F 40/41 PCR (NEGATIVE) Stool Astrovirus (PCR) (NEGATIVE) Stool Cryptosporidium PCR (NEGATIVE) Stool EPEC (PCR) (NEGATIVE) Stool EAEC (PCR) (NEGATIVE) Stl E. histolytica PCR (NEGATIVE) Stl P. shigelloides PCR (NEGATIVE) Stool Sapovirus (PCR) (NEGATIVE) St Y.enterocolitica PCR (NEGATIVE) Stool Vibrio (PCR) (NEGATIVE) Stl Vibrio cholerae PCR (NEGATIVE) Stl Norovirus GI/GII PCR (NEGATIVE) Campylobacter (PCR) (NEGATIVE) C. difficile Toxin A&B (NEGATIVE) Enterotoxigenic E. coli (NEGATIVE) E.coli Shiga Toxins (NEGATIVE) Giardia lamblia (NEGATIVE) Rotavirus A (PCR) (NEGATIVE) Salmonella (PCR) (NEGATIVE) Shigella (PCR) (NEGATIVE) - Progress Progress Note: 01/31/19 09:01 ADMINISTERED IV NORMAL SALINE 100ML/HR, ZOFRAN 4MG, FENTANYL 50MCG IV, AFTER 2 SETS OF BLOOD CULTURES OBTAINED ADMINISTERED LEVAQUIN 500MG AND FLAGYL 500MG IVPB. DISCUSSED WITH PATIENT AND FAMILY CONCERNING HOSPITALIZATION VS OUTPATIENT TREATMENT DUE TO SEVERITY AND DURATION OF SYMPTOMS. 01/31/19 10:[address] Bee (DISCUSSED WITH DR BEE AT 1018 FOR OBSERVATION) - Departure Time of Disposition: 12:05 Departure Disposition: Observation Clinical Impression: ACUTE COLITIS Condition: Stable Critical Care Time: No Referrals: GABE KERR [Primary Care Provider] -
[2019-01-31 08:52] LABS: ALBUMIN 4.1 g/dL (3.5-5.0); ALKALINE PHOSPHATASE 69 U/L (38-126); AMYLASE 50 U/L (30-110); ANION GAP 12.8 MEQ/L (5-15); BLOOD UREA NITROGEN 11 mg/dL (7-17); CHLORIDE 109 mmol/L (98-107); Carbon Dioxide 24 mmol/L (22-30); Creatinine 1 0.69 mg/dL (0.52-1.04); Glucose 103 mg/dL (74-106); Potassium 3.9 mmol/L (3.5-5.1); SGOT/AST 25 U/L (14-36); SGPT/ALT 19 U/L (0-35); SODIUM 142 mmol/L (137-145); Total Protein 7.4 g/dL (6.3-8.2)
--- NOTE | 2019-01-31 10:05 | XRAY ---
Indication: Abdomen pain and diarrhea. Multiple contiguous axial images obtained through the abdomen and pelvis using 80 cc Isovue 370 contrast as ordered. Comparison: None Lung bases demonstrates bibasilar atelectasis/scarring. No infiltrate or effusion. Heart is not enlarged. Partially visualized left breast implant. Noncontrasted stomach and bowel loops appear nonobstructed. Colon demonstrates moderate diffuse wall thickening with minimal stranding favoring colitis. Ileocecal junction unremarkable. No free fluid/air. Prominent uterus with multiple calcified uterine fibroids, largest 1.8 cm. Remaining liver, gallbladder, pancreas, spleen, adrenal glands, kidneys, ureters, and bladder appear unremarkable. Mild aortoiliac calcifications. No AAA or pathologic retroperitoneal lymphadenopathy. Osseous structures intact with mild L4-L5 degenerative disc disease and mild double curvature scoliosis. No ventral or inguinal hernias. Impression: 1. Diffuse colonic bowel wall thickening with stranding favoring colitis. No complications. 2. Incidental calcified uterine fibroids. 3. Remaining CT abdomen/pelvis with contrast exam is negative. CT DI 10.33
[2019-01-31] MEDS ORDERED: FLAGYL 500 MG IVPB 500 MG/100 ML BAG IV STA (10:10)
[2019-01-31] MEDS ORDERED: Levofloxacin 500MG/100ML D5W 500 MG/100 ML BAG IV STA (10:10)
[2019-01-31] MEDS ORDERED: FLAGYL 500 MG IVPB 500 MG/100 ML BAG IV ONE (10:31)
[2019-01-31] MEDS ORDERED: Levofloxacin 500MG/100ML D5W 500 MG/100 ML BAG IV ONE (10:31)
[2019-01-31 11:36] LABS: Campylobacter NEGATIVE (NEGATIVE)
[2019-01-31 11:37] LABS: Adenovirus F 40/41 NEGATIVE (NEGATIVE); Astrovirus NEGATIVE (NEGATIVE); C. Difficile Organism POSITIVE (NEGATIVE); Cyclospora cayentanensis NEGATIVE (NEGATIVE); Entamoeaba histolytica NEGATIVE (NEGATIVE); Enteroaggregative E.coli NEGATIVE (NEGATIVE); Giardia lamblia NEGATIVE (NEGATIVE); Rotavirus A NEGATIVE (NEGATIVE); Salmonella NEGATIVE (NEGATIVE); Sapovirus NEGATIVE (NEGATIVE); Shiga-like toxin prod.E.coli NEGATIVE (NEGATIVE); Vibrio NEGATIVE (NEGATIVE)
[2019-01-31] MEDS ORDERED: Zofran 4 MG/2 ML VIAL IV PRN (12:59)
[2019-01-31] MEDS ORDERED: TYLENOL 325 MG PO PRN (12:59)
[2019-01-31] MEDS ORDERED: SUBLIMAZE 100 MCG/2 ML IV PRN (12:59)
--- NOTE | 2019-01-31 13:45 | HP ---
HISTORY OF PRESENT ILLNESS: This is a 73 year-old patient without a physician in the area who presented to the emergency department complaining of abdominal pain with diarrhea that got worse three days ago. She reports a history of diverticulosis and diverticulitis, most recently she had her left tonsil removed 12/30/2018 and was on antibiotic from 12/30/2018 to 01/05/2019. She reports she had decreased oral intake at that time and could not follow her diet that she usually follows for diverticulosis. She reported biopsy did come back benign and she is able to swallow now. Last Sunday night she had increased abdominal discomfort and diarrhea. She states Sunday it was a little bit better but then got worse on Sunday and then was bad enough today she decided to come to the emergency room. She reports she had to wear Depends because she cannot make it to the bathroom due to frequent diarrhea which is worse at night. She reports she is going at least every hour. She denies seeing any blood in her stool. She reports the pain medicine given to her in the emergency room helped some. REVIEW OF SYSTEMS: No fever. No vomiting. Some nausea with pain. No dysuria. No blood in her stool. No constipation. No chest pain. No dyspnea. No headaches. PAST MEDICAL HISTORY: Cancer in her breast 22 years ago status post mastectomy. Polymyalgia rheumatica which she sees a arts education teacher for. PAST SURGICAL HISTORY: Back surgery on her L5 disc. Left tonsil removed. Left radical mastectomy. She reports having had scopes of her knees bilaterally. MEDICATIONS: The patient reports she takes no medicines on a regular basis. ALLERGIES: PENICILLIN, KEFLEX, SULFA, MORPHINE. SOCIAL HISTORY: She is and lives with her . No tobacco use for the past 37 years. She reports she drinks one glass of wine daily but has not had any since her tonsil was removed. FAMILY HISTORY: Her mother is and of a stroke. Her father is and had lung problems. PHYSICAL EXAMINATION: VITAL SIGNS: Temperature current 98.2F, heart rate 84, respiratory rate 16, blood pressure 148/76, weight 54.4 kg. Oxygen saturation 98% on room air. GENERAL: The patient is a pleasant talkative lady lying in bed in no acute distress. CVS: She has an irregularly irregular rhythm. No murmurs, gallops or rubs are appreciated. CHEST: Clear to auscultation bilaterally. No crackles or wheezes. ABDOMEN: Hyperactive bowel sounds, soft, mild tenderness throughout. No guarding. No rigidity. EXTREMITIES: No clubbing, cyanosis or edema. SKIN: Warm, dry and intact. LABORATORY DATA AND TESTS: She had a CT scan that showed diffuse colonic bowel wall thickening with stranding favoring colitis with no complications. Please see the radiologist dictation for the full report. White blood cell count 8.7. Chloride 109. Liver tests negative. PCR was positive for Clostridium difficile organism. UA was negative. HOSPITAL COURSE: 1) ABDOMIINAL PAIN WITH DIARRHEA: Will check Clostridium difficile to look for the toxin. She has been started on metronidazole and levofloxacin and will continue with these. I am going to try a clear liquid diet as tolerated. 2) HISTORY OF DIVERTICULOSIS WITH HISTORY OF DIVERTICULITIS: Again, she is on broad spectrum antibiotic coverage for this possibility, awaiting the Clostridium difficile toxin to see if she is a carrier or Clostridium difficile toxin is positive and may be causing her problem. She has had recent antibiotic use.
[2019-01-31] MEDS: VANCOMYCIN HCL CAPSULE PO SCH ×2 (13:58→17:48)
[2019-01-31] MEDS: FLAGYL 500 MG IVPB 500 MG/100 ML BAG IV SCH (17:48)
[2019-01-31] MEDS: ENOXAPARIN SODIUM SQ SCH (17:49)
[2019-02-01] MEDS: VANCOMYCIN HCL CAPSULE PO SCH ×4 (00:04→17:50)
[2019-02-01] MEDS: FLAGYL 500 MG IVPB 500 MG/100 ML BAG IV SCH ×4 (00:04→17:51)
[2019-02-01 08:11] VITALS: O2SAT 93
[2019-02-01] MEDS: Vitamin E 400 UNIT SOFTGEL PO SCH (09:48)
[2019-02-01] MEDS: VITA-BEE WITH C PO SCH (09:49)
[2019-02-01] MEDS: Acidophilus TABLET PO SCH (09:49)
[2019-02-01] MEDS: VITAMIN D PO SCH (09:49)
[2019-02-01] MEDS: Levofloxacin 500MG/100ML D5W 500 MG/100 ML BAG IV SCH (09:49)
[2019-02-01] MEDS: THERAGRAN MULTIVITAMIN PO SCH (09:49)
[2019-02-01] MEDS ORDERED: VITAMIN E 1000 UNIT PO SCH (10:00)
[2019-02-01] MEDS ORDERED: NON-FORMULARY ITEM (Multivitamin [Multivitamins] 1 EACH) PO SCH (10:00)
[2019-02-01] MEDS ORDERED: LACTOBACILLUS ACIDOPHILUS PO SCH (10:00)
[2019-02-01] MEDS ORDERED: VITAMIN B COMPLEX PO SCH (10:00)
--- NOTE | 2019-02-01 11:13 | PCM.NOTE ---
Date and Time: 02/01/19 1107 Subjective Assessment: Patient reports that her abdominal pain is better but still a little on the right side. She was able to get some sleep last night. She reports a semi solid stool this AM. She denies nausea. She is agreeable to trying to eat something. Her is at the bedside. - Review of Systems Constitutional: No Symptoms Eyes: No Symptoms Ears, Nose, & Throat: No Symptoms Respiratory: No Symptoms Cardiac: No Symptoms Abdominal/Gastrointestinal: Abdominal Pain, Diarrhea, No Vomiting, No Constipation Genitourinary Symptoms: No Symptoms Musculoskeletal: No Symptoms Skin: No Symptoms Objective Exam General Appearance: no apparent distress, alert Neurologic Exam: alert, cooperative, normal mood/affect Skin Exam: normal color, warm, dry, No rash Respiratory Exam: normal breath sounds, lungs clear, No crackles/rales, No rhonchi, No wheezing Cardiovascular Exam: regular rate/rhythm, normal heart sounds, No murmur, No friction rub, No gallop Gastrointestinal/Abdomen Exam: soft, normal bowel sounds, other (mild right sided tenderness, no tenderness on left side), No distention, No mass, No guarding Extremity Exam: normal inspection, other (no c/c/e) OBJECTIVE DATA Vital Signs: Vital Signs - 24 hr Temp Pulse Resp BP Pulse Ox 02/01/19 08:00 99.2 F 82 17 105/64 93 L 02/01/19 04:00 97.7 F 80 18 114/63 02/01/19 00:00 97.2 F 80 18 131/70 01/31/19 20:00 98.5 F 70 20 128/75 01/31/19 15:45 98.2 F 79 20 132/67 98 01/31/19 13:19 98.3 F 65 20 144/64 97 01/31/19 12:49 98.2 F 84 16 148/76 98 01/31/19 12:05 98 01/31/19 11:41 98.1 F 84 16 146/72 99 Pain Assessment - Last Documented Pain Intensity 0 Pain Scale Used 0-10 Pain Scale Intake and Output: Intake & Output 01/30/19 01/31/19 02/01/19 02/02/19 06:59 06:59 06:59 07:59 Intake Total 1608 Balance 1608 Weight 54.2 kg Lab Results: Lab Results-Last 24 Hours 01/31/19 Range/Units 09:45 Stl C. cayetanensis PCR NEGATIVE (NEGATIVE) Stl Adenov F 40/41 PCR NEGATIVE (NEGATIVE) Stool Astrovirus (PCR) NEGATIVE (NEGATIVE) Stool Cryptosporidium PCR NEGATIVE (NEGATIVE) Stool EPEC (PCR) NEGATIVE (NEGATIVE) Stool EAEC (PCR) NEGATIVE (NEGATIVE) Stl E. histolytica PCR NEGATIVE (NEGATIVE) Stl P. shigelloides PCR NEGATIVE (NEGATIVE) Stool Sapovirus (PCR) NEGATIVE (NEGATIVE) St Y.enterocolitica PCR NEGATIVE (NEGATIVE) Stool Vibrio (PCR) NEGATIVE (NEGATIVE) Stl Vibrio cholerae PCR NEGATIVE (NEGATIVE) Stl Norovirus GI/GII PCR NEGATIVE (NEGATIVE) Campylobacter (PCR) NEGATIVE (NEGATIVE) C. difficile Toxin A&B POSITIVE A (NEGATIVE) Enterotoxigenic E. coli NEGATIVE (NEGATIVE) E.coli Shiga Toxins NEGATIVE (NEGATIVE) Giardia lamblia NEGATIVE (NEGATIVE) Rotavirus A (PCR) NEGATIVE (NEGATIVE) Salmonella (PCR) NEGATIVE (NEGATIVE) Shigella (PCR) NEGATIVE (NEGATIVE) Radiology Exams: Radiology Procedures Category Date Time Status ABDOMEN AND PELVIS W CONTRAST [CT] Stat Exams 01/31/19 08:09 Completed Assessment/Plan (1) Abdominal pain Current Visit: Yes Status: Acute Assessment & Plan: Her pain has improved with IV fluids and IV antibiotics. She has fentanyl ordered for pain but it does not look like she has needed any according to her MAR. Code(s): R10.9 - UNSPECIFIED ABDOMINAL PAIN (2) Diarrhea Current Visit: Yes Status: Acute Assessment & Plan: May be due to C.diff stool PCR showed organism but patient has not had another stool yet to check for toxin. Continue with metronidazole and levofloxacin. She has improved clinically. If continued improvement and able to tolerate a diet, may be able to discharge to home later today or tomorrow. Code(s): R19.7 - DIARRHEA, UNSPECIFIED
[2019-02-01] MEDS: ENOXAPARIN SODIUM SQ SCH (17:50)
[2019-02-01] MEDS: Sodium Chloride 0.9% 1000 ML 1,000 ML IV SCH (21:02)
[2019-02-02] MEDS: VANCOMYCIN HCL CAPSULE PO SCH ×2 (00:21→05:11)
[2019-02-02] MEDS: FLAGYL 500 MG IVPB 500 MG/100 ML BAG IV SCH ×2 (00:21→05:11)
[2019-02-02 01:14] VITALS: PULSE 80
[2019-02-02 07:27] VITALS: BP 130/71
[2019-02-02] MEDS: Sodium Chloride 0.9% 1000 ML 1,000 ML IV SCH (08:53)
[2019-02-02] MEDS: VITAMIN D PO SCH (09:57)
[2019-02-02] MEDS: THERAGRAN MULTIVITAMIN PO SCH (09:57)
[2019-02-02] MEDS: Acidophilus TABLET PO SCH (09:57)
[2019-02-02] MEDS: Levofloxacin 500MG/100ML D5W 500 MG/100 ML BAG IV SCH (09:57)
[2019-02-02] MEDS: Vitamin E 400 UNIT SOFTGEL PO SCH (09:57)
[2019-02-02] MEDS: VITA-BEE WITH C PO SCH (09:58)
--- NOTE | 2019-02-02 11:01 | PCM.DCORD ---
- Discharge Discharge Date: 02/02/19 Disposition: Home, Self-Care Condition: Good Prescriptions: New Levofloxacin [Levofloxacin 500 MG Tablet] 500 mg PO DAILY #6 tablet Vancomycin HCl [Vancomycin HCl Capsule] 125 mg PO Q6HT #36 capsule Continue Vitamin E (Dl,Tocopheryl Acet) [Vitamin E] 1,000 unit PO DAILY Vitamin B Complex [B Complex] 1 each PO DAILY Cholecalciferol (Vitamin D3) [Vitamin D3] 1,000 unit PO DAILY Denosumab 60 mg [Prolia 60 mg Injection] 60 mg SQ UD Multivitamin [Multivitamins] 1 each PO DAILY Lactobacillus Acidophilus [Acidophilus] 1 each PO DAILY Follow up with: GABE KERR [Primary Care Provider] - 1 Week
--- NOTE | 2019-02-03 10:38 | DS ---
DISCHARGE DIAGNOSES: 1) ABDOMINAL PAIN. 2) DIARRHEA. 3) COLITIS. DISCHARGE PHYSICAL EXAMINATION: VITALS: Temperature current 99.9F, temperature max 99.9F, heart rate 76 to 80, respiratory rate 18, blood pressure 105 to 136 over 69 to 71, weight 56.5 kg. Oxygen saturation 93% on room air. GENERAL: The patient is sitting up in bed a pleasant talkative lady in no acute distress. CVS: She has a regular rate and rhythm. No murmurs, gallops or rubs are appreciated. CHEST: Clear to auscultation bilaterally. No crackles or wheezes. ABDOMEN: Soft, nontender, nondistended with normal bowel sounds. EXTREMITIES: No clubbing, cyanosis or edema. SKIN: Warm, dry and intact. HOSPITAL COURSE: 1) ABDOMINAL PAIN: This is most likely due to colitis. It has improved. She is not needing any IV pain medicine. The patient reports her stools are more formed and she is comfortable with going home. 2) DIARRHEA: This may be due to Clostridium difficile. She had a gastrointestinal PCR that showed the presence of the organism and we were never able to collect a sample to look for the toxin. She has been on Vancomycin orally since she has been here and has improved so will plan to send her home to complete another nine days of the oral Vancomycin for probable Clostridium difficile. 3) COLITIS: Again her GI panel was negative except for the Clostridium difficile organism but we are unsure if she has the toxin. She has been on IV Levaquin since she has been here and will finish out another six days of oral Levaquin at home. DISCHARGE MEDICATIONS: Please see the discharge order. DISPOSITION: The patient will be discharged to home in good condition to follow up with her primary care doctor.
== END 2019-02-02 11:40 | disposition home or self-care (01) ==
LOC: ED 07:30 → MED SURG 12:57
PROVIDERS: ADMIT Internal Medicine; ATTEND Internal Medicine
DX: R10.9 Unspecified abdominal pain (principal); K52.9 Noninfective gastroenteritis and colitis, unspecified; Z79.899 Other long term (current) drug therapy; Z85.3 Personal history of malignant neoplasm of breast
CPT/HCPCS: 36000; 36415; 74177; 80053; 81001; 82150; 82272; 83690; 85025; 87040; 87507; 93005; 96360; 96361; 96365; 96374; 96375; 99285; G0378; J1650; J1956; J2405; J3010; A9270-GY

== ENCOUNTER 2019-02-20 17:56 | Emergency (ER) | payer MEDICARE, OTHER ==
[2019-02-20] MEDS ORDERED: Sodium Chloride 0.9% 1000 ML 1,000 ML IV STA ×2 (18:25→20:03)
[2019-02-20] MEDS ORDERED: Zofran 4 MG/2 ML VIAL IV ONE (18:25)
[2019-02-20] MEDS ORDERED: Sodium Chloride 0.9% 1000 ML 1,000 ML ONE ×2 (18:33→20:14)
[2019-02-20] MEDS ORDERED: Zofran 4 MG/2 ML VIAL ONE (18:33)
[2019-02-20 18:39] LABS: BASOPHIL % 0.3 % (0.0-0.4); Basophil (Absolute #) 0.04 (0-0.4); Eosinophil % 2.2 % (0.00-5.0); Granulocyte Absolute (ANC) 10.83 (1.4-6.9); Granulocytes % 79.1 % (36.0-66.0); Hematocrit 39.2 % (35-47); Hemoglobin 12.7 gm/dl (12.0-16.0); Lymphocyte (Absolute #) 1.43 (1.0-4.6); Lymphocytes % 10.4 % (24.0-44.0); Mean Cell Volume 92.9 fl (78-100); Mean Corpuscular Hemoglobin 30.1 pg (26-32); Mean Corpuscular Hgb Concent. 32.4 g/dl (32-36); Mean Platelet Volume 10.4 fl (6-9.5); Monocyte (Absolute #) 1.09 (0.0-1.3); Platelet Count 284 K/mm3 (150-450); Red Blood Count 4.22 M/mm3 (4.1-5.4); Red Cell Distribution Width 14.9 % (11.5-14.0); White Blood Count 13.7 K/mm3 (4.0-10.5)
[2019-02-20 18:46] LABS: Appearance CLEAR (CLEAR); Bilirubin NEGATIVE (NEGATIVE); Blood NEGATIVE Ery/ul (0-5); Glucose NEGATIVE (NEGATIVE); Ketones NEGATIVE (NEGATIVE); Leukocyte Esterase NEGATIVE (NEGATIVE); Nitrite NEGATIVE (NEGATIVE); Protein,Urine Dip NEGATIVE (Negative); Specific Gravity 1.003 (1.005-1.025); Urobilinogen NEGATIVE mg/dL (0-1); WBC 0-2 /HPF (0-5)
[2019-02-20 18:55] LABS: Bacteria NONE SEEN /HPF (NEGATIVE); RBC NONE SEEN /HPF (0-2)
[2019-02-20 18:58] LABS: ALBUMIN 4.2 g/dL (3.5-5.0); ALKALINE PHOSPHATASE 86 U/L (38-126); AMYLASE 62 U/L (30-110); ANION GAP 14.1 MEQ/L (5-15); BLOOD UREA NITROGEN 13 mg/dL (7-17); CHLORIDE 105 mmol/L (98-107); Calcium 9.8 mg/dL (8.4-10.2); Carbon Dioxide 24 mmol/L (22-30); Creatinine 1 0.63 mg/dL (0.52-1.04); Glucose 96 mg/dL (74-106); LIPASE 157 U/L (23-300); Potassium 3.7 mmol/L (3.5-5.1); SGOT/AST 25 U/L (14-36); SGPT/ALT 20 U/L (0-35); SODIUM 139 mmol/L (137-145); Total Protein 7.9 g/dL (6.3-8.2)
--- NOTE | 2019-02-20 19:50 | ERPHSYRPT ---
- History of Present Illness Time Seen by Provider: 02/20/19 18:15 Historian: patient, family Exam Limitations: no limitations Patient Subjective Stated Complaint: abdominal cramping starting last night with diarrhea. was just seen here 2 weeks ago with dx C-Diff. nausea with no vomiting. Triage Nursing Assessment: alert and oriented looking very thin. states she has had diarrhea/loose stool of yellow color since last night with cramping. denies fever.. nausea with no vomiting. was able to keep her morning meal down. staets she has a steroid injection to her left shoulder 1 week ago. + swapnil bowel sounds x4 quads. denies urinary symptoms. Physician History: 73 y/o white female presents with recurrent diarrhea and lower abd cramping since early this am. pt underwent an tonsillectomy in Dec 2018. she was placed on oral antibx. pt then was dx with C diff and placed on flagyl and vancomycin. she was managed for a few days in the hospital. pt is no longer on any antibx. pt was feeling pretty well until her recurrent sx this am. pts pcp is dr. hayes in [place], [place] Timing/Duration: today Activities at Onset: none Quality: cramping Abdominal Pain Onset Location: suprapubic (bilat) Severity of Pain-Max: mild Severity of Pain-Current: mild Associated Symptoms: diarrhea, loss of appetite, nausea Previous symptoms: same symptoms as today Allergies/Adverse Reactions: cephalexin [From Keflex] Allergy (Intermediate, Verified 02/20/19 18:24) Hives morphine Allergy (Intermediate, Verified 02/20/19 18:24) HTN Penicillins Allergy (Intermediate, Verified 02/20/19 18:24) Hives Sulfa (Sulfonamide Antibiotics) Allergy (Intermediate, Verified 02/20/19 18:24) Hives Home Medications: Cholecalciferol (Vitamin D3) [Vitamin D3] 1,000 unit PO DAILY 12/30/17 [History] Vitamin B Complex [B Complex] 1 each PO DAILY 12/30/17 [History] Vitamin E (Dl,Tocopheryl Acet) [Vitamin E] 1,000 unit PO DAILY 12/30/17 [History ] Denosumab 60 mg [Prolia 60 mg Injection] 60 mg SQ UD 01/31/19 [History] Lactobacillus Acidophilus [Acidophilus] 1 each PO DAILY 01/31/19 [History] Multivitamin [Multivitamins] 1 each PO DAILY 01/31/19 [History] Hx Tetanus, Diphtheria Vaccination/Date Given: Yes Hx Influenza Vaccination/Date Given: Yes Hx Pneumococcal Vaccination/Date Given: Yes Immunizations Up to Date: Yes - Review of Systems Constitutional: Weakness Eyes: No Symptoms Ears, Nose, & Throat: No Symptoms Respiratory: No Symptoms Cardiac: No Symptoms Abdominal/Gastrointestinal: Abdominal Pain (bilat lower abd cramping), Nausea, Diarrhea Genitourinary Symptoms: No Symptoms Musculoskeletal: No Symptoms Skin: No Symptoms Neurological: No Symptoms Psychological: No Symptoms Endocrine: No Symptoms Hematologic/Lymphatic: No Symptoms Immunological/Allergic: No Symptoms All Other Systems: Reviewed and Negative - Past Medical History Pertinent Past Medical History: Yes Neurological History: Other ENT History: Cataracts Cardiac History: Deep Vein Thrombosis Respiratory History: No Pertinent History Endocrine Medical History: No Pertinent History Musculoskeletal History: Osteoarthritis GI Medical History: Esophageal Disorder, Ulcer, Other History: No Pertinent History Psycho-Social History: No Pertinent History Female Reproductive Disorders: Breast Cancer Other Medical History: cataract surgery 2016, radical mast. Left breast 1997, Back Surgery/ ruptured disk L5 1994 barretts esophogus, polymyocyitisrhumatica ( PMR) C-diff - Past Surgical History Past Surgical History: Yes Neuro Surgical History: No Pertinent History Cardiac: No Pertinent History Respiratory: No Pertinent History Gastrointestinal: No Pertinent History Genitourinary: No Pertinent History Musculoskeletal: Other Female Surgical History: Mastectomy Other Surgical History: Right wrist broken 2010. left tonsil removed 12/2018 - Social History Smoking Status: Never smoker Exposure to second hand smoke: No Drug Use: none Patient Lives Alone: No - Female History Hx Now: No - Nursing Vital Signs Nursing Vital Signs: Initial Vital Signs Temperature 98 F 02/20/19 18:12 Pulse Rate 69 02/20/19 18:12 Respiratory Rate 18 02/20/19 18:12 Blood Pressure 157/76 02/20/19 18:12 O2 Sat by Pulse Oximetry 100 02/20/19 18:12 Pain Scale Pain Intensity 0 - Physical Exam General Appearance: mild distress, alert, anxiety Eye Exam: PERRL/EOMI, eyes nml inspection Ears, Nose, Throat Exam: normal ENT inspection, dry mucous membranes Neck Exam: normal inspection, non-tender, supple, full range of motion Respiratory Exam: normal breath sounds, lungs clear, airway intact, No chest tenderness, No respiratory distress Cardiovascular Exam: regular rate/rhythm, normal heart sounds, normal peripheral pulses Gastrointestinal/Abdomen Exam: soft, normal bowel sounds, tenderness (mild bilat suprapubic), guarding, No rebound Pelvic Exam: not done Rectal Exam: not done Back Exam: normal inspection, normal range of motion, No CVA tenderness, No vertebral tenderness Extremity Exam: normal inspection, normal range of motion, pelvis stable Neurologic Exam: alert, oriented x 3, cooperative, creative art director II-XII nml as tested Skin Exam: normal color, warm, dry Lymphatic Exam: No adenopathy SpO2 Interpretation: normal SpO2: 98 O2 Delivery: Room Air - Course Nursing assessment & vital signs reviewed: Yes Ordered Tests: Active Orders 24 hr Category Date Time Status IV Insertion STAT Care 02/20/19 18:25 Active ABDOMEN AND PELVIS W/0 CONTRAS [CT] Stat Exams 02/20/19 19:01 Taken AMYLASE Stat Lab 02/20/19 18:30 Completed CBC W DIFF Stat Lab 02/20/19 18:30 Completed CMP Stat Lab 02/20/19 18:30 Completed LIPASE Stat Lab 02/20/19 18:30 Completed Lactic Acid Stat Lab 02/20/19 18:25 Completed UA W/RFX UR CULTURE Stat Lab 02/20/19 18:41 Completed Medication Summary Generic Name Dose Route Start Last Admin Trade Name Freq PRN Reason Stop Dose Admin Sodium Chloride 1,000 mls @ 999 mls/hr 02/20/19 20:03 02/20/19 20:16 Sodium Chloride 0.9% 1000 Ml IV 02/20/19 21:03 999 mls/hr .Q1H1M STA Administration Discontinued Medications Generic Name Dose Route Start Last Admin Trade Name Freq PRN Reason Stop Dose Admin Sodium Chloride 1,000 mls @ 999 mls/hr 02/20/19 18:25 02/20/19 19:37 Sodium Chloride 0.9% 1000 Ml IV 02/20/19 19:25 Infused .Q1H1M STA Infusion Sodium Chloride Confirm 02/20/19 18:33 Sodium Chloride 0.9% 1000 Ml Administered 02/20/19 18:34 Dose 1,000 mls @ ud .ROUTE .STK-MED ONE Sodium Chloride Confirm 02/20/19 20:14 Sodium Chloride 0.9% 1000 Ml Administered 02/20/19 20:15 Dose 1,000 mls @ ud .ROUTE .STK-MED ONE Metronidazole 500 mg 02/20/19 20:23 Flagyl 500 Mg PO 02/20/19 20:24 STAT ONE Ondansetron HCl 4 mg 02/20/19 18:25 02/20/19 18:36 Zofran 4 Mg/2 Ml Vial IV 02/20/19 18:26 4 mg STAT ONE Administration Ondansetron HCl Confirm 02/20/19 18:33 Zofran 4 Mg/2 Ml Vial Administered 02/20/19 18:34 Dose 4 mg .ROUTE .STK-MED ONE Vancomycin HCl 250 mg 02/20/19 20:25 Vancocin 500 Mg Vial PO 02/20/19 20:26 STAT ONE Lab/Rad Data: Laboratory Result Diagrams 02/20/19 18:30 02/20/19 18:30 Laboratory Results 02/20/19 02/20/19 02/20/19 Range/Units 18:41 18:30 18:30 WBC 13.7 H (4.0-10.5) K/mm3 RBC 4.22 (4.1-5.4) M/mm3 Hgb 12.7 (12.0-16.0) gm/dl Hct 39.2 (35-47) % MCV 92.9 (78-100) fl MCH 30.1 (26-32) pg MCHC 32.4 (32-36) g/dl RDW 14.9 H (11.5-14.0) % Plt Count 284 (150-450) K/mm3 MPV 10.4 H (6-9.5) fl Gran % 79.1 H (36.0-66.0) % Eos # (Auto) 0.30 (0-0.5) Absolute Lymphs (auto) 1.43 (1.0-4.6) Absolute Monos (auto) 1.09 (0.0-1.3) Lymphocytes % 10.4 L (24.0-44.0) % Monocytes % 8.0 (0.0-12.0) % Eosinophils % 2.2 (0.00-5.0) % Basophils % 0.3 (0.0-0.4) % Absolute Granulocytes 10.83 H (1.4-6.9) Basophils # 0.04 (0-0.4) Sodium 139 (137-145) mmol/L Potassium 3.7 (3.5-5.1) mmol/L Chloride 105 (98-107) mmol/L Carbon Dioxide 24 (22-30) mmol/L Anion Gap 14.1 (5-15) MEQ/L BUN 13 (7-17) mg/dL Creatinine 0.63 (0.52-1.04) mg/dL Estimated GFR > 60.0 ML/MIN Glucose 96 (74-106) mg/dL Lactic Acid (0.4-2.0) Calcium 9.8 (8.4-10.2) mg/dL Total Bilirubin 0.90 (0.2-1.3) mg/dL AST 25 (14-36) U/L ALT 20 (0-35) U/L Alkaline Phosphatase 86 (38-126) U/L Serum Total Protein 7.9 (6.3-8.2) g/dL Albumin 4.2 (3.5-5.0) g/dL Amylase 62 (30-110) U/L Lipase 157 (23-300) U/L Urine Color STRAW (YELLOW) Urine Appearance CLEAR (CLEAR) Urine pH 6.0 (5-6) Ur Specific [place] 1.003 (1.005-1.025) Urine Protein NEGATIVE (Negative) Urine Ketones NEGATIVE (NEGATIVE) Urine Blood NEGATIVE (0-5) Rickie/ul Urine Nitrite NEGATIVE (NEGATIVE) Urine Bilirubin NEGATIVE (NEGATIVE) Urine Urobilinogen NEGATIVE (0-1) mg/dL Ur Leukocyte Esterase NEGATIVE (NEGATIVE) Urine WBC (Auto) 0-2 (0-5) /HPF Urine RBC (Auto) NONE SEEN (0-2) /HPF U Epithel Cells (Auto) NONE (FEW) /HPF Urine Bacteria (Auto) NONE SEEN (NEGATIVE) /HPF Urine Culture Reflexed NO (NO) Urine Glucose NEGATIVE (NEGATIVE) mg/dL 02/20/19 Range/Units 18:25 WBC (4.0-10.5) K/mm3 RBC (4.1-5.4) M/mm3 Hgb (12.0-16.0) gm/dl Hct (35-47) % MCV (78-100) fl MCH (26-32) pg MCHC (32-36) g/dl RDW (11.5-14.0) % Plt Count (150-450) K/mm3 MPV (6-9.5) fl Gran % (36.0-66.0) % Eos # (Auto) (0-0.5) Absolute Lymphs (auto) (1.0-4.6) Absolute Monos (auto) (0.0-1.3) Lymphocytes % (24.0-44.0) % Monocytes % (0.0-12.0) % Eosinophils % (0.00-5.0) % Basophils % (0.0-0.4) % Absolute Granulocytes (1.4-6.9) Basophils # (0-0.4) Sodium (137-145) mmol/L Potassium (3.5-5.1) mmol/L Chloride (98-107) mmol/L Carbon Dioxide (22-30) mmol/L Anion Gap (5-15) MEQ/L BUN (7-17) mg/dL Creatinine (0.52-1.04) mg/dL Estimated GFR ML/MIN Glucose (74-106) mg/dL Lactic Acid 1.4 (0.4-2.0) Calcium (8.4-10.2) mg/dL Total Bilirubin (0.2-1.3) mg/dL AST (14-36) U/L ALT (0-35) U/L Alkaline Phosphatase (38-126) U/L Serum Total Protein (6.3-8.2) g/dL Albumin (3.5-5.0) g/dL Amylase (30-110) U/L Lipase (23-300) U/L Urine Color (YELLOW) Urine Appearance (CLEAR) Urine pH (5-6) Ur Specific [place] (1.005-1.025) Urine Protein (Negative) Urine Ketones (NEGATIVE) Urine Blood (0-5) Rickie/ul Urine Nitrite (NEGATIVE) Urine Bilirubin (NEGATIVE) Urine Urobilinogen (0-1) mg/dL Ur Leukocyte Esterase (NEGATIVE) Urine WBC (Auto) (0-5) /HPF Urine RBC (Auto) (0-2) /HPF U Epithel Cells (Auto) (FEW) /HPF Urine Bacteria (Auto) (NEGATIVE) /HPF Urine Culture Reflexed (NO) Urine Glucose (NEGATIVE) mg/dL - Progress Progress: improved, re-examined Progress Note: 02/20/19 20:26 ct scan abd/pelvis-mild residual vs early recurrent colitis 02/20/19 20:28 pt states she is feeling better. she would like to attempt outpatient antibx tx. she wants to follow up with pcp tomorrow. i offered admission into this hospital. i do think it is ok to attempt outpt tx. Counseled pt/family regarding: lab results, diagnosis, need for follow-up, rad results - Departure Departure Disposition: Home Clinical Impression: Colitis Condition: Stable Critical Care Time: No Referrals: GABE HAYES [Primary Care Provider] - Additional Instructions: drink plenty of fluids. follow up with dr. hayes tomorrow for further management. return to ED if symptoms worsen. Prescriptions: Metronidazole 500 mg [Flagyl 500 MG] 500 mg PO TID #30 tablet
[2019-02-20] MEDS ORDERED: Flagyl 500 MG PO ONE (20:23)
[2019-02-20] MEDS ORDERED: VANCOCIN 500 MG VIAL PO ONE (20:25)
[2019-02-20] MEDS ORDERED: Flagyl 500 MG ONE (20:28)
[2019-02-20 20:30] VITALS: O2SAT 98
[2019-02-20] MEDS ORDERED: VANCOMYCIN HCL CAPSULE PO ONE (20:36)
[2019-02-20] MEDS ORDERED: VANCOMYCIN HCL CAPSULE ONE (20:39)
[2019-02-20 21:08] VITALS: BP 119/65; PULSE 69
[2019-02-20 21:38] LABS: TOXIGENIC C. DIFF ORG POSITIVE (NEGATIVE)
[2019-02-20 21:39] LABS: 027 TOX PROD POSITIVE (NEGATIVE)
--- NOTE | 2019-02-21 08:42 | XRAY ---
Indication: Abdomen pain and diarrhea. Multiple contiguous axial images obtained through the abdomen and pelvis without contrast as ordered. Comparison: January 31, 2019. Lung bases again demonstrates bibasilar atelectasis/scarring without new infiltrate or effusion. Heart is not enlarged. Again partially visualized left breast implant. Noncontrasted stomach and bowel loops again nonobstructed.: Again demonstrates mild scattered bowel wall thickening with minimal stranding less than before, residual versus recurrent colitis. No free fluid/air. Stable mild scattered colonic diverticulosis, calcified hepatic granuloma, pancreatic tail calcification, and multiple calcified uterine fibroids. Remaining liver, gallbladder, pancreas, spleen, adrenal glands, kidneys, ureters, and bladder appear unremarkable for noncontrast exam. Again mild aortoiliac calcifications without AAA. Impression: 1. Diffuse colonic bowel wall thickening with stranding less than before either residual versus recurrent colitis. 2. Stable colonic diverticulosis, pancreatic tail calcification, and calcified uterine fibroids. 3. Remaining CT abdomen/pelvis without contrast exam is negative. CTDI 9.96
== END 2019-02-20 21:09 | disposition home or self-care (01) ==
LOC: ED 17:56
DX: K52.9 Noninfective gastroenteritis and colitis, unspecified (principal); M19.90 Unspecified osteoarthritis, unspecified site; Z79.899 Other long term (current) drug therapy
CPT/HCPCS: 36000; 36415; 74176; 80053; 81001; 82150; 83605; 83690; 85025; 87493; 96360; 96361; 96365; 96374; 99284; J2405; A9270-GY

== ENCOUNTER 2019-03-10 06:56 | Emergency (ER) | payer MEDICARE, OTHER ==
--- NOTE | 2019-03-10 07:16 | ERPHSYRPT ---
- History of Present Illness Time Seen by Provider: 03/10/19 07:00 Source: patient, family Patient Subjective Stated Complaint: Left tonsil removed in December, has a burning sensation in esophagus and since then she hasn't been able to swallow very well Triage Nursing Assessment: Pt reports having her left tonsil removed in December , has a burning sensation in esophagus and since then she hasn't been able to swallow very well, has to soak food to be able to get it down, No noticable swelling, hx of barretts esophagus, BP 154/86, denies pain, lost 20 pounds since surgery in December Physician History: 73 y/o white female with h/o Barretts esophagus, had left tonsil removed in December 2018 and has had c diff toxin. pt has had 20 pound weight loss over last 2 to 3 months. pt followed up with ENT surgeon recently. He told pt she needs to see an GI specialist. pt states she is having some difficulty swallowing. Timing/Duration: gradual onset Severity: mild ENT Location: throat (burning) Modifying Factors: Improves With: other (swallowing) Associated Symptoms: difficulty swallowing Allergies/Adverse Reactions: cephalexin [From Keflex] Allergy (Intermediate, Verified 03/10/19 07:10) Hives morphine Allergy (Intermediate, Verified 03/10/19 07:10) HTN Penicillins Allergy (Intermediate, Verified 03/10/19 07:10) Hives Sulfa (Sulfonamide Antibiotics) Allergy (Intermediate, Verified 03/10/19 07:10) Hives Home Medications: Cholecalciferol (Vitamin D3) [Vitamin D3] 1,000 unit PO DAILY 12/30/17 [History] Vitamin B Complex [B Complex] 1 each PO DAILY 12/30/17 [History] Vitamin E (Dl,Tocopheryl Acet) [Vitamin E] 1,000 unit PO DAILY 12/30/17 [History ] Denosumab 60 mg [Prolia 60 mg Injection] 60 mg SQ UD 01/31/19 [History] Lactobacillus Acidophilus [Acidophilus] 1 each PO DAILY 01/31/19 [History] Multivitamin [Multivitamins] 1 each PO DAILY 01/31/19 [History] Hx Tetanus, Diphtheria Vaccination/Date Given: Yes Hx Influenza Vaccination/Date Given: Yes Hx Pneumococcal Vaccination/Date Given: Yes - Review of Systems Constitutional: Weight Loss Eyes: No Symptoms Ears, Nose, & Throat: Throat Pain (left burning), Painful Swallowing (burning) Respiratory: No Symptoms Cardiac: No Symptoms Abdominal/Gastrointestinal: No Symptoms Genitourinary Symptoms: No Symptoms Musculoskeletal: No Symptoms Skin: No Symptoms Neurological: No Symptoms Psychological: No Symptoms Endocrine: No Symptoms Hematologic/Lymphatic: No Symptoms Immunological/Allergic: No Symptoms All Other Systems: Reviewed and Negative - Past Medical History Pertinent Past Medical History: Yes Neurological History: Other ENT History: Cataracts Cardiac History: Deep Vein Thrombosis Respiratory History: No Pertinent History Endocrine Medical History: No Pertinent History Musculoskeletal History: Osteoarthritis GI Medical History: Esophageal Disorder, Ulcer, Other History: No Pertinent History Psycho-Social History: No Pertinent History Female Reproductive Disorders: Breast Cancer Other Medical History: cataract surgery 2016, radical mast. Left breast 1997, Back Surgery/ ruptured disk L5 1994 barretts esophogus, polymyocyitisrhumatica ( PMR) C-diff - Past Surgical History Past Surgical History: Yes Neuro Surgical History: No Pertinent History Cardiac: No Pertinent History Respiratory: No Pertinent History Gastrointestinal: No Pertinent History Genitourinary: No Pertinent History Musculoskeletal: Other Female Surgical History: Mastectomy Other Surgical History: Right wrist broken 2010. left tonsil removed 12/2018 - Social History Smoking Status: Never smoker Exposure to second hand smoke: No Drug Use: none Patient Lives Alone: No - Female History Hx Now: No - Nursing Vital Signs Nursing Vital Signs: Initial Vital Signs Temperature 97.8 F 03/10/19 07:01 Pulse Rate 87 03/10/19 07:01 Blood Pressure 152/98 03/10/19 07:01 O2 Sat by Pulse Oximetry 98 03/10/19 07:01 Pain Scale Pain Intensity 0 - Physical Exam General Appearance: no apparent distress, alert, anxiety Eye Exam: bilateral eye: normal inspection, PERRL, EOMI Ear Exam: bilateral ear: auricle normal, canal normal, TM normal Nasal Exam: normal inspection Throat Exam: normal Neck Exam: normal inspection, non-tender, supple, full range of motion, No lymphadenopathy (R), No lymphadenopathy (L) Cardiovascular/Respiratory Exam: chest non-tender, normal breath sounds, regular rate/rhythm, heart sounds normal, No crepitus Abdominal Exam: non-tender Neurologic Exam: alert, oriented x 3, cooperative, general adjuster II-XII nml as tested, normal mood/affect, nml cerebellar function, nml station & gait Skin Exam: normal color, warm, dry SpO2 Interpretation: normal SpO2: 98 O2 Delivery: Room Air Ordered Tests: Active Orders 24 hr Category Date Time Status NECK WO CONTRAST [CT] Stat Exams 03/10/19 07:19 Completed - Progress Progress: unchanged Counseled pt/family regarding: diagnosis, need for follow-up, rad results - Departure Departure Disposition: Home Clinical Impression: Dysphagia Condition: Stable Critical Care Time: No Referrals: GABE KERR [Primary Care Provider] - Additional Instructions: take new medications. follow up as directed for testing with dr. Parada. Prescriptions: Omeprazole 20 mg PO DAILY #30 capsule.
[2019-03-10 08:29] VITALS: BP 117/69
--- NOTE | 2019-03-10 08:38 | XRAY ---
Indication: Left neck pain. Difficulty swallowing. Tonsillectomy December 2018. Multiple contiguous axial images obtained through the neck without contrast. Comparison: None Supra and infraglottic airway are widely patent. Normal epiglottis. Parotid and submandibular glands are bilaterally symmetric. No pathologic cervical or supraclavicular lymphadenopathy. Major arteries and veins are normal in course and caliber. Minimal carotid calcifications bilaterally. Thyroid gland demonstrates heterogeneity and left lobe atrophy. Cervical spine intact with mild multilevel degenerative changes. Base of the brain unremarkable. Lung apices demonstrates pleural parenchymal thickening/scarring on the left. Impression: 1. Heterogeneous thyroid gland with left lobe atrophy. 2. Mild multilevel cervical degenerative spondylosis. 3. Left lung apical pleural-parenchymal thickening/scarring. 4. Remaining CT neck without contrast exam is negative. CT DI 8.61
[2019-03-10 08:51] VITALS: O2SAT 98
[2019-03-10 09:11] VITALS: PULSE 70
== END 2019-03-10 09:11 | disposition home or self-care (01) ==
LOC: ED 06:56
DX: R13.10 Dysphagia, unspecified (principal); K22.70 Barrett's esophagus without dysplasia; Z79.899 Other long term (current) drug therapy
CPT/HCPCS: 70490; 99283

== ENCOUNTER 2019-09-05 06:26 | Emergency (ER) | payer MEDICARE, OTHER ==
[2019-09-05] MEDS ORDERED: SUBLIMAZE 100 MCG/2 ML IV ONE (07:18)
[2019-09-05] MEDS ORDERED: Zofran 4 MG/2 ML VIAL IV ONE (07:18)
[2019-09-05] MEDS ORDERED: Sodium Chloride 0.9% 1000 ML 1,000 ML IV STA (07:18)
--- NOTE | 2019-09-05 07:18 | ERPHSYRPT ---
- History of Present Illness Time Seen by Provider: 09/05/19 07:05 Historian: patient Exam Limitations: no limitations Patient Subjective Stated Complaint: PT HAS NOT BEEN ABLE TO SLEEP DUE TO ABDOMINAL PAIN PT STATES SHE HAS BEEN CONSTIPATED FOR TWO DAYS, STATES SHE HAS A HISTORY OF DIVERTICULOSIS. WAS DIAGNOSED 2 YEARS AGO. Triage Nursing Assessment: PT IS ALERT AND ORIENTED, RATES ABDOMINAL PAIN 8/ 10 Physician History: Patient has bilateral abdominal pain since 09/04/2019. It worsened in the evening of 09/04/2019. Timing/Duration: yesterday Activities at Onset: none Quality: cramping, sharpness Abdominal Pain Onset Location: LLQ, suprapubic Pain Radiation: RLQ Severity of Pain-Max: severe Severity of Pain-Current: moderate Modifying Factors: Improves With: nothing Associated Symptoms: No back, No chest pain, No diaphoresis, No diarrhea, No fever/chills, No fatigue, No headache, No heartburn, No loss of appetite, No nausea, No neck pain, No rash, No shortness of breath, No syncope, No vomiting, No weakness Previous symptoms: same symptoms as today, other (history of diverticulosis) Allergies/Adverse Reactions: cephalexin [From Keflex] Allergy (Intermediate, Verified 09/05/19 06:43) Hives morphine Allergy (Intermediate, Verified 09/05/19 06:43) HTN Penicillins Allergy (Intermediate, Verified 09/05/19 06:43) Hives Sulfa (Sulfonamide Antibiotics) Allergy (Intermediate, Verified 09/05/19 06:43) Hives Home Medications: Cholecalciferol (Vitamin D3) [Vitamin D3] 1,000 unit PO DAILY 12/30/17 [History] Vitamin B Complex [B Complex] 1 each PO DAILY 12/30/17 [History] Vitamin E (Dl,Tocopheryl Acet) [Vitamin E] 1,000 unit PO DAILY 12/30/17 [History ] Denosumab 60 mg [Prolia 60 mg Injection] 60 mg SQ UD 01/31/19 [History] Lactobacillus Acidophilus [Acidophilus] 1 each PO DAILY 01/31/19 [History] Multivitamin [Multivitamins] 1 each PO DAILY 01/31/19 [History] Hx Tetanus, Diphtheria Vaccination/Date Given: Yes Hx Influenza Vaccination/Date Given: Yes Hx Pneumococcal Vaccination/Date Given: Yes - Review of Systems Constitutional: No Fever, No Chills, No Fatigue Eyes: No Eye Pain, No Eye Redness Ears, Nose, & Throat: No Mouth Pain Respiratory: No Cough, No Dyspnea Cardiac: No Chest Pain, No Palpitations Abdominal/Gastrointestinal: Abdominal Pain, Constipation, No Nausea, No Vomiting , No Diarrhea, No Hematemesis, No Hematochezia, No Melena Genitourinary Symptoms: No Dysuria, No Frequency, No Hematuria, No Flank Pain Musculoskeletal: No Arthralgias, No Back Pain, No Neck Pain Skin: No Pruritis, No Rash Neurological: No Dizziness, No Focal Weakness, No Headache Psychological: No Alcohol Abuse, No Anxiety Endocrine: No Polyuria, No Polydipsia Hematologic/Lymphatic: No Easy Bleeding, No Easy Bruising All Other Systems: Reviewed and Negative - Past Medical History Pertinent Past Medical History: Yes Neurological History: Other ENT History: Cataracts Cardiac History: Deep Vein Thrombosis Respiratory History: No Pertinent History Endocrine Medical History: No Pertinent History Musculoskeletal History: Osteoarthritis GI Medical History: Diverticulosis History: No Pertinent History Psycho-Social History: No Pertinent History Female Reproductive Disorders: Breast Cancer Other Medical History: MASTECTOMY L, CDIFF - Past Surgical History Past Surgical History: Yes Neuro Surgical History: No Pertinent History Cardiac: No Pertinent History Respiratory: No Pertinent History Gastrointestinal: No Pertinent History Genitourinary: No Pertinent History Musculoskeletal: Other Female Surgical History: Other Other Surgical History: LOW BACK SURGERY, ELBOW - Social History Smoking Status: Former smoker Exposure to second hand smoke: No Drug Use: none Patient Lives Alone: No - Nursing Vital Signs Nursing Vital Signs: Initial Vital Signs Temperature 100.7 F 09/05/19 06:30 Pulse Rate 85 09/05/19 06:30 Respiratory Rate 16 09/05/19 06:30 Blood Pressure 123/71 09/05/19 06:30 O2 Sat by Pulse Oximetry 96 09/05/19 06:30 Pain Scale Pain Intensity 8 - Physical Exam General Appearance: no apparent distress Eye Exam: PERRL/EOMI, eyes nml inspection, No scleral icterus Ears, Nose, Throat Exam: pharynx normal, moist mucous membranes Neck Exam: normal inspection, non-tender, supple, full range of motion Respiratory Exam: normal breath sounds, lungs clear, airway intact, No chest tenderness, No respiratory distress, No accessory muscle use, No crackles/rales , No rhonchi, No wheezing, No stridor Cardiovascular Exam: regular rate/rhythm, normal heart sounds, capillary refill <2 sec Gastrointestinal/Abdomen Exam: soft, normal bowel sounds, tenderness (LLQ), No guarding, No rebound, No hernia Extremity Exam: normal inspection, normal range of motion, pelvis stable Neurologic Exam: alert, oriented x 3, cooperative, 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 Again scattered colonic diverticulosis with probable recurrent mild distal sigmoid diverticulitis. No free fluid/air. Stable calcified hepatic granuloma , pancreatic opacification, and calcified uterine fibroids. Remaining liver, gallbladder, pancreas, spleen, adrenal, kidneys, ureters, and bladder appear unremarkable for noncontrast exam. There remains mild aorta iliac calcification without AAA. Osseous structures intact again with minimal L4-L5 degenerative changes and mild dextroscoliosis. Overall impression: Again colonic diverticulosis with probable recurrent distal sigmoid diverticulitis. No complications. Stable pancreatic opacification and calcified uterine fibroids.) Ordered Tests: Active Orders 24 hr Category Date Time Status IV Insertion STAT Care 09/05/19 07:18 Active ABDOMEN AND PELVIS W/0 CONTRAS [CT] Stat Exams 09/05/19 07:19 Completed AMYLASE Stat Lab 09/05/19 07:25 Completed CBC W DIFF Stat Lab 09/05/19 07:25 Completed CMP Stat Lab 09/05/19 07:25 Completed LIPASE Stat Lab 09/05/19 07:25 Completed Lactic Acid Stat Lab 09/05/19 07:18 Completed UA W/RFX UR CULTURE Stat Lab 09/05/19 07:42 Completed Medication Summary Discontinued Medications Generic Name Dose Route Start Last Admin Trade Name Freq PRN Reason Stop Dose Admin Fentanyl Citrate 50 mcg 09/05/19 07:18 09/05/19 07:43 Sublimaze 100 Mcg/2 Ml IV 09/05/19 07:19 50 mcg STAT ONE Administration Fentanyl Citrate Confirm 09/05/19 07:33 Sublimaze 100 Mcg/2 Ml Administered 09/05/19 07:34 Dose 100 mcg .ROUTE .STK-MED ONE Sodium Chloride 1,000 mls @ 999 mls/hr 09/05/19 07:18 09/05/19 08:47 Sodium Chloride 0.9% 1000 Ml IV 09/05/19 08:18 Infused .Q1H1M STA Infusion Sodium Chloride Confirm 09/05/19 07:33 Sodium Chloride 0.9% 1000 Ml Administered 09/05/19 07:34 Dose 1,000 mls @ ud .ROUTE .STK-MED ONE Ondansetron HCl 4 mg 09/05/19 07:18 09/05/19 07:43 Zofran 4 Mg/2 Ml Vial IV 09/05/19 07: 4 mg STAT ONE Administration Ondansetron HCl Confirm 09/05/19 07:32 Zofran 4 Mg/2 Ml Vial Administered 09/05/19 07:33 Dose 4 mg .ROUTE .STK-MED ONE Lab/Rad Data: Laboratory Result Diagrams 09/05/19 07:25 09/05/19 07:25 Laboratory Results 09/05/19 09/05/19 09/05/19 Range/Units 07:42 07:25 07:25 WBC 11.7 H (4.0-10.5) K/mm3 RBC 3.80 L (4.1-5.4) M/mm3 Hgb 11.7 L (12.0-16.0) gm/dl Hct 35.4 (35-47) % MCV 93.2 (78-100) fl MCH 30.7 (26-32) pg MCHC 33.1 (32-36) g/dl RDW 15.1 H (11.5-14.0) % Plt Count 162 (150-450) K/mm3 MPV 10.0 H (6-9.5) fl Gran % 78.9 H (36.0-66.0) % Eos # (Auto) 0.15 (0-0.5) Absolute Lymphs (auto) 1.19 (1.0-4.6) Absolute Monos (auto) 1.11 (0.0-1.3) Lymphocytes % 10.1 L (24.0-44.0) % Monocytes % 9.5 (0.0-12.0) % Eosinophils % 1.3 (0.00-5.0) % Basophils % 0.2 (0.0-0.4) % Absolute Granulocytes 9.27 H (1.4-6.9) Basophils # 0.02 (0-0.4) Sodium 140 (137-145) mmol/L Potassium 4.0 (3.5-5.1) mmol/L Chloride 110 H (98-107) mmol/L Carbon Dioxide 22 (22-30) mmol/L Anion Gap 11.8 (5-15) MEQ/L BUN 14 (7-17) mg/dL Creatinine 0.68 (0.52-1.04) mg/dL Estimated GFR > 60.0 ML/MIN Glucose 110 H (74-106) mg/dL Lactic Acid (0.4-2.0) Calcium 8.9 (8.4-10.2) mg/dL Total Bilirubin 1.10 (0.2-1.3) mg/dL AST 27 (14-36) U/L ALT 12 (0-35) U/L Alkaline Phosphatase 69 (38-126) U/L Serum Total Protein 7.2 (6.3-8.2) g/dL Albumin 3.8 (3.5-5.0) g/dL Amylase 59 (30-110) U/L Lipase 100 (23-300) U/L Urine Color YELLOW (YELLOW) Urine Appearance CLEAR (CLEAR) Urine pH 7.0 (5-6) Ur Specific [place] 1.011 (1.005-1.025) Urine Protein NEGATIVE (Negative) Urine Ketones NEGATIVE (NEGATIVE) Urine Blood NEGATIVE (0-5) Rickie/ul Urine Nitrite NEGATIVE (NEGATIVE) Urine Bilirubin NEGATIVE (NEGATIVE) Urine Urobilinogen NEGATIVE (0-1) mg/dL Ur Leukocyte Esterase NEGATIVE (NEGATIVE) Urine WBC (Auto) NONE (0-5) /HPF Urine RBC (Auto) NONE (0-2) /HPF U Epithel Cells (Auto) NONE (FEW) /HPF Urine Bacteria (Auto) NONE SEEN (NEGATIVE) /HPF Urine Culture Reflexed NO (NO) Urine Glucose NEGATIVE (NEGATIVE) mg/dL 09/05/19 Range/Units 07:18 WBC (4.0-10.5) K/mm3 RBC (4.1-5.4) M/mm3 Hgb (12.0-16.0) gm/dl Hct (35-47) % MCV (78-100) fl MCH (26-32) pg MCHC (32-36) g/dl RDW (11.5-14.0) % Plt Count (150-450) K/mm3 MPV (6-9.5) fl Gran % (36.0-66.0) % Eos # (Auto) (0-0.5) Absolute Lymphs (auto) (1.0-4.6) Absolute Monos (auto) (0.0-1.3) Lymphocytes % (24.0-44.0) % Monocytes % (0.0-12.0) % Eosinophils % (0.00-5.0) % Basophils % (0.0-0.4) % Absolute Granulocytes (1.4-6.9) Basophils # (0-0.4) Sodium (137-145) mmol/L Potassium (3.5-5.1) mmol/L Chloride (98-107) mmol/L Carbon Dioxide (22-30) mmol/L Anion Gap (5-15) MEQ/L BUN (7-17) mg/dL Creatinine (0.52-1.04) mg/dL Estimated GFR ML/MIN Glucose (74-106) mg/dL Lactic Acid 0.6 (0.4-2.0) Calcium (8.4-10.2) mg/dL Total Bilirubin (0.2-1.3) mg/dL AST (14-36) U/L ALT (0-35) U/L Alkaline Phosphatase (38-126) U/L Serum Total Protein (6.3-8.2) g/dL Albumin (3.5-5.0) g/dL Amylase (30-110) U/L Lipase (23-300) U/L Urine Color (YELLOW) Urine Appearance (CLEAR) Urine pH (5-6) Ur Specific [place] (1.005-1.025) Urine Protein (Negative) Urine Ketones (NEGATIVE) Urine Blood (0-5) Rickie/ul Urine Nitrite (NEGATIVE) Urine Bilirubin (NEGATIVE) Urine Urobilinogen (0-1) mg/dL Ur Leukocyte Esterase (NEGATIVE) Urine WBC (Auto) (0-5) /HPF Urine RBC (Auto) (0-2) /HPF U Epithel Cells (Auto) (FEW) /HPF Urine Bacteria (Auto) (NEGATIVE) /HPF Urine Culture Reflexed (NO) Urine Glucose (NEGATIVE) mg/dL - Progress Progress: improved Progress Note: 09/05/19 08:13 Pain has resolved after IV Fentanyl. Patient tolerating the Fentanyl without any difficulty. 09/05/19 09:02 patient denies any abdominal pain. 09/05/19 09:20 Patient will be discharged home as she has no acute surgical issues that requires inpatient admission or immediate surgical, neurologic or gynecologic specialist evaluation. Patient was reviewed what signs and symptoms to return back to the emergency department including any worse abdominal pain, change in bowel habits, fever, nausea and vomiting or new abdominal distension. Counseled pt/family regarding: lab results, diagnosis, need for follow-up, rad results - Departure Departure Disposition: Home Clinical Impression: Sigmoid diverticulitis, Elevated blood pressure reading without diagnosis of hypertension, Pancreatic calcification Uterine fibroid Qualifiers: Uterine leiomyoma location: unspecified location Qualified Code(s): D25.9 - Leiomyoma of uterus, unspecified Condition: Good Critical Care Time: No Referrals: GABE KERR [Primary Care Provider] - Follow Up with PCP/3 days Instructions: DASH Diet, Diverticulitis (DC), Acute Abdomen (Belly Pain), Adult (DC) Additional Instructions: Return immediately to the emergency department if any fever, new black or red stools, no abdominal distention or any other concerning signs or symptoms that were not present at is emergency department visit for immediate reevaluation in the emergency department. Prescriptions: Ciprofloxacin [Cipro 500 MG] 500 mg PO BID #20 tablet Docusate Sodium 100 mg [Colace 100 MG] 100 mg PO BID #10 cap Metronidazole 500 mg [Flagyl 500 MG] 500 mg PO QID #40 tablet
[2019-09-05] MEDS ORDERED: Zofran 4 MG/2 ML VIAL ONE (07:32)
[2019-09-05] MEDS ORDERED: SUBLIMAZE 100 MCG/2 ML ONE (07:33)
[2019-09-05] MEDS ORDERED: Sodium Chloride 0.9% 1000 ML 1,000 ML ONE (07:33)
[2019-09-05 07:35] LABS: Absolute Neutrophil Ct (ANC) 9.27 (1.4-6.9); BASOPHIL % 0.2 % (0.0-0.4); Basophil (Absolute #) 0.02 (0-0.4); Eosinophil % 1.3 % (0.00-5.0); Eosinophil (Absolute #) 0.15 (0-0.5); Hematocrit 35.4 % (35-47); Hemoglobin 11.7 gm/dl (12.0-16.0); Lymphocyte (Absolute #) 1.19 (1.0-4.6); Lymphocytes % 10.1 % (24.0-44.0); Mean Cell Volume 93.2 fl (78-100); Mean Corpuscular Hemoglobin 30.7 pg (26-32); Mean Corpuscular Hgb Concent. 33.1 g/dl (32-36); Monocyte (Absolute #) 1.11 (0.0-1.3); Monocytes % 9.5 % (0.0-12.0); Neutrophil % 78.9 % (36.0-66.0); Platelet Count 162 K/mm3 (150-450); Red Cell Distribution Width 15.1 % (11.5-14.0); White Blood Count 11.7 K/mm3 (4.0-10.5)
[2019-09-05 07:47] LABS: ALBUMIN 3.8 g/dL (3.5-5.0); ALKALINE PHOSPHATASE 69 U/L (38-126); AMYLASE 59 U/L (30-110); ANION GAP 11.8 MEQ/L (5-15); BLOOD UREA NITROGEN 14 mg/dL (7-17); CHLORIDE 110 mmol/L (98-107); Calcium 8.9 mg/dL (8.4-10.2); Carbon Dioxide 22 mmol/L (22-30); Creatinine 1 0.68 mg/dL (0.52-1.04); Glucose 110 mg/dL (74-106); LIPASE 100 U/L (23-300); SGOT/AST 27 U/L (14-36); SGPT/ALT 12 U/L (0-35); SODIUM 140 mmol/L (137-145); Total Protein 7.2 g/dL (6.3-8.2)
[2019-09-05 07:51] LABS: Appearance CLEAR (CLEAR); Bacteria NONE SEEN /HPF (NEGATIVE); Bilirubin NEGATIVE (NEGATIVE); Blood NEGATIVE Ery/ul (0-5); Glucose NEGATIVE (NEGATIVE); Ketones NEGATIVE (NEGATIVE); Leukocyte Esterase NEGATIVE (NEGATIVE); Nitrite NEGATIVE (NEGATIVE); Protein,Urine Dip NEGATIVE (Negative); Specific Gravity 1.011 (1.005-1.025); Urobilinogen NEGATIVE mg/dL (0-1)
--- NOTE | 2019-09-05 08:54 | XRAY ---
Indication: Lower abdomen pain 2 days. History diverticulosis. Multiple contiguous axial images obtained through the abdomen and pelvis without contrast as ordered. Comparison: February 20, 2019. Lung bases again demonstrate bibasilar atelectasis/scarring. No infiltrate or effusion. Heart is not enlarged. Again partially visualized left breast implant. Noncontrasted stomach and bowel loops appear nonobstructed. Normal appendix. Again scattered colonic diverticulosis with probable recurrent mild distal sigmoid diverticulitis. No free fluid/air. Stable calcified hepatic granuloma, pancreatic tail calcification, and calcified uterine fibroids. Remaining liver, gallbladder, pancreas, spleen, adrenal glands, kidneys, ureters, and bladder appear unremarkable for noncontrast exam. There remains mild aortoiliac calcifications without AAA. Osseous structures intact again with minimal L4-L5 degenerative changes and mild dextroscoliosis. Impression: 1. Again colonic diverticulosis with probable recurrent distal sigmoid diverticulitis. No complications. 2. Stable pancreatic tail calcification and calcified uterine fibroids. CT DI 10.23
[2019-09-05 09:40] VITALS: BP 120/68; PULSE 55
[2019-09-05 09:44] VITALS: O2SAT 96
== END 2019-09-05 09:39 | disposition home or self-care (01) ==
LOC: ED 06:26
DX: K57.92 Diverticulitis of intestine, part unspecified, without perforation or abscess without bleeding (principal); R03.0 Elevated blood-pressure reading, without diagnosis of hypertension; K86.89 Other specified diseases of pancreas; D25.9 Leiomyoma of uterus, unspecified; R10.32 Left lower quadrant pain; R10.31 Right lower quadrant pain; Z79.899 Other long term (current) drug therapy
CPT/HCPCS: 36415; 74176; 80053; 81001; 82150; 83605; 83690; 85025; 96360; 96374; 96375; 99284; J2405; J3010

== ENCOUNTER 2023-05-12 16:20 | Emergency (ER) | payer MEDICARE, OTHER ==
[2023-05-12] MEDS ORDERED: Sodium Chloride 0.9% 1000 ML 1,000 ML IV STA (18:35)
[2023-05-12] MEDS ORDERED: SUBLIMAZE 100 MCG/2 ML IV ONE (18:35)
--- NOTE | 2023-05-12 18:38 | ERPHSYRPT ---
- History of Present Illness Time Seen by Provider: 05/12/23 18:45 Source: patient, family Exam Limitations: no limitations Patient Subjective Stated Complaint: Pt reports she starting experiencing low back pain/urinary frequency/urgency "a few days ago". Pt could not pinpoint the exact date symptoms started. Triage Nursing Assessment: Pt alert and oriented x3. No apparent respiratory distress. Ambulated to ED cot without difficulty. Skin w/p/d. Accompanied by spouse. No obvious deformities/swelling/contusions to lower back. Physician History: Patient is a 77-year-old white female who presents with lower abdominal and low back pain for about 1 week and a half. This is slowly been getting worse she has had no fever she has had no chills she has had no nausea vomiting or diarrhea she has had some urinary frequency and urgency. She also does have a history of diverticulitis in the past. Timing/Duration: day(s) (10) Severity of Pain-Max: moderate Severity of Pain-Current: moderate Modifying Factors: Improves With: movement Associated Symptoms: problems urinating, lower back pain Allergies/Adverse Reactions: cephalexin [From Keflex] Allergy (Intermediate, Verified 05/12/23 18:16) Hives morphine Allergy (Intermediate, Verified 05/12/23 18:16) HTN Penicillins Allergy (Intermediate, Verified 05/12/23 18:16) Hives Sulfa (Sulfonamide Antibiotics) Allergy (Intermediate, Verified 05/12/23 18:16) Hives Home Medications: Cholecalciferol (Vitamin D3) [Vitamin D3] 1,000 unit PO DAILY 12/30/17 [History] Vitamin B Complex [B Complex] 1 each PO DAILY 12/30/17 [History] Vitamin E (Dl,Tocopheryl Acet) [Vitamin E] 1,000 unit PO DAILY 12/30/17 [History] Denosumab 60 mg [Prolia 60 mg Injection] 60 mg SQ UD 01/31/19 [History] Lactobacillus Acidophilus [Acidophilus] 1 each PO DAILY 01/31/19 [History] Multivitamin [Multivitamins] 1 each PO DAILY 01/31/19 [History] Hx Tetanus, Diphtheria Vaccination/Date Given: Yes Hx Influenza Vaccination/Date Given: Yes Hx Pneumococcal Vaccination/Date Given: Yes Travel Risk - International Travel Have you traveled outside of the country in past 3 weeks: No - Coronavirus Screening Are you exhibiting any of the following symptoms?: No Close contact with a COVID-19 positive Pt in past 14-21 Days: No - Vaccine Status Have you recieved a Covid-19 vaccination: Yes 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 - Review of Systems Constitutional: No Fever, No Chills Eyes: No Symptoms Ears, Nose, & Throat: No Symptoms Respiratory: No Cough, No Dyspnea Cardiac: No Chest Pain, No Edema, No Syncope Abdominal/Gastrointestinal: Abdominal Pain, No Nausea, No Vomiting, No Diarrhea Genitourinary Symptoms: Frequency, No Dysuria Musculoskeletal: No Back Pain, No Neck Pain Skin: No Rash Neurological: No Dizziness, No Focal Weakness, No Sensory Changes Psychological: No Symptoms Endocrine: No Symptoms All Other Systems: Reviewed and Negative - Past Medical History Pertinent Past Medical History: Yes Neurological History: Other ENT History: Cataracts Cardiac History: No Pertinent History Respiratory History: No Pertinent History Endocrine Medical History: No Pertinent History Musculoskeletal History: Degenerative Disk Disease, Fractures, Osteoarthritis GI Medical History: Diverticulosis History: No Pertinent History Psycho-Social History: No Pertinent History Female Reproductive Disorders: Breast Cancer Other Medical History: HX OF SKIN CANCER, BREAST CA 23 YEARS WITH LEFT MASTECTOMY WITH RECONSTRUCTION, FX RIGHT WRIST 16-18 YEARS AGO, LEFT RCT AND SLAP LESION REPAIR 2019. Cognitive decline - memory problems - Past Surgical History Past Surgical History: Yes Neuro Surgical History: No Pertinent History Cardiac: No Pertinent History Respiratory: No Pertinent History Gastrointestinal: No Pertinent History Genitourinary: No Pertinent History Musculoskeletal: Other Female Surgical History: Other Other Surgical History: LOW BACK SURGERY, ELBOW - Social History Smoking Status: Former smoker Exposure to second hand smoke: No Drug Use: none Patient Lives Alone: No - Nursing Vital Signs Nursing Vital Signs: Initial Vital Signs Temperature 97.9 F 05/12/23 18:08 Pulse Rate 72 05/12/23 18:08 Respiratory Rate 15 05/12/23 18:08 Blood Pressure 178/103 05/12/23 18:08 O2 Sat by Pulse Oximetry 98 05/12/23 18:08 Pain Scale Pain Intensity [Lower Back] 8 Pain Intensity 4 - Physical Exam General Appearance: no apparent distress, alert Eye Exam: PERRL/EOMI, eyes nml inspection Neck Exam: normal inspection, non-tender, supple, full range of motion, No meni ngismus, No midline tenderness Respiratory Exam: normal breath sounds, lungs clear, No respiratory distress Cardiovascular Exam: regular rate/rhythm, normal heart sounds Gastrointestinal Exam: normal bowel sounds, tenderness, guarding, rebound, No mass Back Exam: normal inspection, muscle spasm Extremity Exam: normal inspection, normal range of motion, No calf tenderness, No pedal edema Neurologic Exam: alert, oriented x 3, cooperative, lead security officer II-XII nml as tested, normal mood/affect, nml station & gait, sensation nml, No motor deficits Skin Exam: normal color, warm, dry, No rash SpO2: 98 - Course Nursing assessment & vital signs reviewed: Yes - CT Exams Abdomen/Pelvis CT Interpretation: Tele-radiologist Report Ordered Tests: Active Orders 24 hr Category Date Time Status IV Insertion STAT Care 05/12/23 18:35 Active ABDOMEN AND PELVIS W/0 CONTRAS [CT] Stat Exams 05/12/23 18:36 Completed AMYLASE Stat Lab 05/12/23 19:29 Completed CBC W DIFF Stat Lab 05/12/23 19:29 Completed CMP Stat Lab 05/12/23 19:29 Completed CULTURE,URINE Stat Lab 05/12/23 18:44 Received LIPASE Stat Lab 05/12/23 19:29 Completed Lactic Acid Stat Lab 05/12/23 20:04 Completed PROTIME WITH INR Stat Lab 05/12/23 19:29 Completed UA W/RFX UR CULTURE Stat Lab 05/12/23 18:44 Completed Medication Summary Discontinued Medications Generic Name Dose Route Start Last Admin Trade Name Justinq PRN Reason Stop Dose Admin Fentanyl Citrate 50 mcg 05/12/23 18:35 05/12/23 19:41 Fentanyl Citrate 100 Mcg/2 Ml* Vial IV 05/12/23 18:36 50 mcg STAT ONE Administration Fentanyl Citrate Confirm 05/12/23 19:37 Fentanyl Citrate 100 Mcg/2 Ml* Vial Administered 05/12/23 19:38 Dose 100 mcg .ROUTE .STK-MED ONE Sodium Chloride 1,000 mls @ 999 mls/hr 05/12/23 18:35 05/12/23 19:39 Sodium Chloride 0.9% 1000 Ml IV 05/12/23 19:35 999 mls/hr .Q1H1M STA Administration Sodium Chloride Confirm 05/12/23 19:37 Sodium Chloride 0.9% 1000 Ml Administered 05/12/23 19:38 Dose 1,000 mls @ ud .ROUTE .STK-MED ONE Lab/Rad Data: Laboratory Result Diagrams 05/12/23 19:29 05/12/23 19:29 Laboratory Results 05/12/23 05/12/23 05/12/23 Range/Units 20:04 19:29 19:29 WBC (4.0-10.5) x10^3/uL RBC (4.1-5.4) x10^6/uL Hgb (12.0-16.0) g/dL Hct (35-47) % MCV (78-100) fL MCH (26-32) pg MCHC (32-36) g/dL RDW (11.5-14.0) % Plt Count (150-450) x10^3/uL MPV (7.5-11.0) fL Gran % (36.0-66.0) % Immature Gran % (Auto) (0.00-0.4) % Nucleat RBC Rel Count (0.00-0.1) % Eos # (Auto) (0-0.5) x10^3/uL Immature Gran # (Auto) (0.00-0.03) x10^3u/L Absolute Lymphs (auto) (1.0-4.6) x10^3/uL Absolute Monos (auto) (0.0-1.3) x10^3/uL Absolute Nucleated RBC (0.00-0.01) x10^3u/L Lymphocytes % (24.0-44.0) % Monocytes % (0.0-12.0) % Eosinophils % (0.00-5.0) % Basophils % (0.0-0.4) % Absolute Granulocytes (1.4-6.9) x10^3/uL Basophils # (0-0.4) x10^3/uL PT 10.7 (9.4-12.5) SECONDS INR 0.98 (0.8-3.0) Sodium 141 (137-145) mmol/L Potassium 4.6 (3.5-5.1) mmol/L Chloride 107 (98-107) mmol/L Carbon Dioxide 24 (22-30) mmol/L Anion Gap 15.0 (5-15) MEQ/L BUN 21 H (7-17) mg/dL Creatinine 0.65 (0.52-1.04) mg/dL Estimated GFR > 60.0 ML/MIN Glucose 94 (74-106) mg/dL Lactic Acid 1.0 (0.4-2.0) Calcium 9.5 (8.4-10.2) mg/dL Total Bilirubin 0.40 (0.2-1.3) mg/dL AST 39 H (14-36) U/L ALT 23 (0-35) U/L Alkaline Phosphatase 94 (38-126) U/L Serum Total Protein 8.3 H (6.3-8.2) g/dL Albumin 4.5 (3.5-5.0) g/dL Amylase 68 (30-110) U/L Lipase 249 (23-300) U/L Urine Color (Yellow) Urine Appearance (Clear) Urine pH (4.6-8.0) Ur Specific [place] (1.005-1.030) Urine Protein (Negative) Urine Glucose (UA) (Negative) mg/dL Urine Ketones (Negative) Urine Blood (Negative) Urine Nitrite (Negative) Urine Bilirubin (Negative) Urine Urobilinogen (0.2) mg/dL Ur Leukocyte Esterase (Negative) U Hyaline Cast (Auto) (0-2) /LPF Urine Microscopic RBC (0-5) /HPF Urine Microscopic WBC (0-5) /HPF Ur Epithelial Cells (None Seen) /HPF Urine Bacteria (None Seen) /HPF Urine Culture Reflexed (NO) 05/12/23 05/12/23 Range/Units 19:29 18:44 WBC 5.7 (4.0-10.5) x10^3/uL RBC 4.12 (4.1-5.4) x10^6/uL Hgb 12.3 (12.0-16.0) g/dL Hct 38.0 (35-47) % MCV 92.2 (78-100) fL MCH 29.9 (26-32) pg MCHC 32.4 (32-36) g/dL RDW 14.3 H (11.5-14.0) % Plt Count 262 (150-450) x10^3/uL MPV 9.1 (7.5-11.0) fL Gran % 60.6 (36.0-66.0) % Immature Gran % (Auto) 0.0 (0.00-0.4) % Nucleat RBC Rel Count 0.0 (0.00-0.1) % Eos # (Auto) 0.23 (0-0.5) x10^3/uL Immature Gran # (Auto) 0.00 (0.00-0.03) x10^3u/L Absolute Lymphs (auto) 1.46 (1.0-4.6) x10^3/uL Absolute Monos (auto) 0.51 (0.0-1.3) x10^3/uL Absolute Nucleated RBC 0.00 (0.00-0.01) x10^3u/L Lymphocytes % 25.6 (24.0-44.0) % Monocytes % 8.9 (0.0-12.0) % Eosinophils % 4.0 (0.00-5.0) % Basophils % 0.9 (0.0-0.4) % Absolute Granulocytes 3.46 (1.4-6.9) x10^3/uL Basophils # 0.05 (0-0.4) x10^3/uL PT (9.4-12.5) SECONDS INR (0.8-3.0) Sodium (137-145) mmol/L Potassium (3.5-5.1) mmol/L Chloride (98-107) mmol/L Carbon Dioxide (22-30) mmol/L Anion Gap (5-15) MEQ/L BUN (7-17) mg/dL Creatinine (0.52-1.04) mg/dL Estimated GFR ML/MIN Glucose (74-106) mg/dL Lactic Acid (0.4-2.0) Calcium (8.4-10.2) mg/dL Total Bilirubin (0.2-1.3) mg/dL AST (14-36) U/L ALT (0-35) U/L Alkaline Phosphatase (38-126) U/L Serum Total Protein (6.3-8.2) g/dL Albumin (3.5-5.0) g/dL Amylase (30-110) U/L Lipase (23-300) U/L Urine Color Yellow (Yellow) Urine Appearance Clear (Clear) Urine pH 7.5 (4.6-8.0) Ur Specific [place] 1.010 (1.005-1.030) Urine Protein Negative (Negative) Urine Glucose (UA) Negative (Negative) mg/dL Urine Ketones Negative (Negative) Urine Blood Negative (Negative) Urine Nitrite Negative (Negative) Urine Bilirubin Negative (Negative) Urine Urobilinogen 0.2 (0.2) mg/dL Ur Leukocyte Esterase Negative (Negative) U Hyaline Cast (Auto) NONE SEEN (0-2) /LPF Urine Microscopic RBC 0-2 (0-5) /HPF Urine Microscopic WBC 0-2 (0-5) /HPF Ur Epithelial Cells None Seen (None Seen) /HPF Urine Bacteria None Seen (None Seen) /HPF Urine Culture Reflexed NO (NO) - Progress Progress: unchanged Medical Desision Making - Independent Historian Additional History obtained from: Spouse - Diagnostic Testing Diagnostic test were ordered, analyzed, and reviewed by me: Yes Radiological Interpretation: Reviewed by me - Risk of complications Low Risk: Low risk of morbidity from additional dx testing or treatment - Departure Departure Disposition: Home Clinical Impression: Diverticulitis Condition: Stable Critical Care Time: No Referrals: GARRY BEE [Primary Care Provider] - Follow up/PCP as directed Instructions: Diverticulitis (DC) Prescriptions: Ciprofloxacin [Cipro 500 MG] 500 mg PO BID #14 tablet Metronidazole 500 mg [Flagyl 500 MG] 500 mg PO TID #21 tablet Tramadol HCl 50 mg [Ultram 50 mg] 50 mg PO Q6H 3 Days #12 tablet
[2023-05-12 19:09] LABS: Appearance Clear (Clear); Bacteria None Seen /HPF (None Seen); Bilirubin Negative (Negative); Blood Negative (Negative); Epithelial Cells None Seen /HPF (None Seen); Glucose, Urine Negative (Negative); Hyaline Casts NONE SEEN /LPF (0-2); Ketones Negative (Negative); Leukocyte Esterase Negative (Negative); Nitrite Negative (Negative); Ph 7.5 (4.6-8.0); Protein,Urine Dip Negative (Negative); RBC 0-2 /HPF (0-5); Urobilinogen 0.2 mg/dL (0.2); WBC 0-2 /HPF (0-5)
[2023-05-12 19:24] LABS: ADD URINE CULTURE? NO (NO)
[2023-05-12 19:32] LABS: Absolute Neutrophil Ct (ANC) 3.46 x10^3/uL (1.4-6.9); BASOPHIL % 0.9 % (0.0-0.4); Basophil (Absolute #) 0.05 x10^3/uL (0-0.4); Eosinophil (Absolute #) 0.23 x10^3/uL (0-0.5); Hemoglobin 12.3 g/dL (12.0-16.0); Lymphocyte (Absolute #) 1.46 x10^3/uL (1.0-4.6); Lymphocytes % 25.6 % (24.0-44.0); Mean Cell Volume 92.2 fL (78-100); Mean Corpuscular Hemoglobin 29.9 pg (26-32); Mean Corpuscular Hgb Concent. 32.4 g/dL (32-36); Mean Platelet Volume 9.1 fL (7.5-11.0); Monocyte (Absolute #) 0.51 x10^3/uL (0.0-1.3); Monocytes % 8.9 % (0.0-12.0); Neutrophil % 60.6 % (36.0-66.0); Platelet Count 262 x10^3/uL (150-450); Red Blood Count 4.12 x10^6/uL (4.1-5.4); Red Cell Distribution Width 14.3 % (11.5-14.0); White Blood Count 5.7 x10^3/uL (4.0-10.5)
--- NOTE | 2023-05-12 19:33 | XRAY ---
CLINICAL HISTORY:Flank pain; COMPARISON:None; TECHNIQUES:CT scan of the abdomen and pelvis was performed without IV contrast. No oral contrast. Coronal and sagittal reconstructive images were also obtained. CTDI 2.89 mGy, DLP 130.8 mGycm; FINDINGS: Scan through the lower chest reveals unremarkable lung bases and heart. Abdomen:The liver is of average size and measures 14 cm. There is a focal small calcification in segment IV, most likely corresponding to granuloma. The portal vein, intrahepatic biliary radicals and the bile ducts are normal. The gallbladder is distended and shows no definite stones. There is no evidence of wall thickening/ pericholecystic collection. The pancreas shows a focal calcification in tail, most likely sequelae. The spleen, and adrenal glands are unremarkable. The kidneys are normal in size and shape. No calculi or hydronephrosis. The stomach and the visualized small bowel loops are unremarkable. There is no evidence of significant mesenteric or retroperitoneal lymph node enlargement. No free fluid. Pelvis:The urinary bladder is unremarkable. Colonic diverticulosis, mainly involving sigmoid colon without evidence of diverticulitis. The uterus shows a 5 cm fibroid with calcifications. Atherosclerotic calcification of the aorta and major abdominal arteries seen. No evidence of pelvic lymphadenopathy. No definite bony abnormalities could be depicted. IMPRESSION: 1. Colonic diverticulosis, mainly involving sigmoid colon without evidence of diverticulitis. 2. Calcified Uterine fibroid. 3. No acute intra-abdominal abnormality. Electronically Signed by: Harpal Fortune MD. (05/12/2023 18:29:00 [employer])
[2023-05-12] MEDS ORDERED: SUBLIMAZE 100 MCG/2 ML ONE (19:37)
[2023-05-12] MEDS ORDERED: Sodium Chloride 0.9% 1000 ML 1,000 ML ONE (19:37)
[2023-05-12 19:47] LABS: ALBUMIN 4.5 g/dL (3.5-5.0); ALKALINE PHOSPHATASE 94 U/L (38-126); AMYLASE 68 U/L (30-110); BLOOD UREA NITROGEN 21 mg/dL (7-17); CHLORIDE 107 mmol/L (98-107); Calcium 9.5 mg/dL (8.4-10.2); Carbon Dioxide 24 mmol/L (22-30); Creatinine 1 0.65 mg/dL (0.52-1.04); EST GLOMERULAR FILTRATION RATE > 60.0 ML/MIN; Glucose 94 mg/dL (74-106); INR 0.98 (0.8-3.0); LIPASE 249 U/L (23-300); PROTIME 10.7 SECONDS (9.4-12.5); Potassium 4.6 mmol/L (3.5-5.1); SGOT/AST 39 U/L (14-36); SGPT/ALT 23 U/L (0-35); SODIUM 141 mmol/L (137-145); Total Protein 8.3 g/dL (6.3-8.2)
[2023-05-12 20:05] VITALS: BP 161/90; PULSE 74
[2023-05-12 20:28] VITALS: O2SAT 98
[2023-05-12] MEDS ORDERED: Cipro 500 MG PO ONE (20:29)
[2023-05-12] MEDS ORDERED: Flagyl 500 MG PO ONE (20:29)
[2023-05-12] MEDS ORDERED: ULTRAM 50 MG PO PRN (20:30)
[2023-05-12] MEDS ORDERED: Cipro 500 MG ONE (20:47)
[2023-05-12] MEDS ORDERED: ULTRAM 50 MG ONE ×2 (20:47→21:00)
[2023-05-12] MEDS ORDERED: Flagyl 500 MG ONE (20:47)
[2023-05-12] MEDS ORDERED: ULTRAM 50 MG PO ONE (20:58)
== END 2023-05-12 21:27 | disposition home or self-care (01) ==
LOC: ED 16:20
DX: K57.92 Diverticulitis of intestine, part unspecified, without perforation or abscess without bleeding (principal); R10.30 Lower abdominal pain, unspecified; M54.50 Low back pain, unspecified; R35.0 Frequency of micturition; Z79.899 Other long term (current) drug therapy
CPT/HCPCS: 36000; 36415; 74176; 80053; 81001; 82150; 83605; 83690; 85025; 85610; 87086; 96374; 99284; J3010; A9270-GY

== ENCOUNTER 2023-09-01 13:37 | Emergency (ER) | payer MEDICARE, OTHER ==
[2023-09-01 14:09] VITALS: TEMP 97.9
--- NOTE | 2023-09-01 14:12 | ERPHSYRPT ---
- History of Present Illness Time Seen by Provider: 09/01/23 14:09 Source: patient, family Exam Limitations: no limitations Patient Subjective Stated Complaint: pt reports fall from an approximate 7 ft ladder, states she was not on the top rung but close, reports she turned and the ladder collapsed. pt fell to the left and she landed on the ladder. pt reports pain to her left cheek, left collarbone, left hip, and left ribs most of all. reports it is very painful to move. Triage Nursing Assessment: pt is aox3, pt is shaking upon exam, pt appears in pain, pt afebrile, pupils perrl, pt with moderate swelling and an abrasion to the left cheek, skin is intact, pt abd soft non tender, abrasions to the left upper leg, no deformities noted at this time. Physician History: pt reports fall from an approximate 7 ft ladder, states she was not on the top rung but close, reports she turned and the ladder collapsed. pt fell to the left and she landed on the ladder. pt reports pain to her left cheek, left collarbone, left hip, and left ribs most of all. reports it is very painful to move. Occurred: just prior to arrival Reason for Fall: fell from height Injuries/Pain Location: face, upper extremity, chest Loss of Consciousness: no loss of consciousness Quality: sharpness Severity of Pain-Max: moderate Severity of Pain-Current: moderate Modifying Factors: Improves With: nothing Associated Symptoms (Fall): denies symptoms Body Map: 1 - pain 2 - pain 3 - pain 4 - bruised Allergies/Adverse Reactions: cephalexin [From Keflex] Allergy (Intermediate, Verified 09/01/23 14:09) Hives morphine Allergy (Intermediate, Verified 09/01/23 14:09) HTN Penicillins Allergy (Intermediate, Verified 09/01/23 14:09) Hives Sulfa (Sulfonamide Antibiotics) Allergy (Intermediate, Verified 09/01/23 14:09) Hives Home Medications: Donepezil HCl 10 mg [Aricept 10 MG] 10 mg PO DAILY 09/01/23 [History] Hx Tetanus, Diphtheria Vaccination/Date Given: Yes Hx Influenza Vaccination/Date Given: Yes Hx Pneumococcal Vaccination/Date Given: Yes Travel Risk - International Travel Have you traveled outside of the country in past 3 weeks: No - Coronavirus Screening Are you exhibiting any of the following symptoms?: No Close contact with a COVID-19 positive Pt in past 14-21 Days: No - Vaccine Status Have you recieved a Covid-19 vaccination: Yes 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 - Review of Systems Constitutional: No Symptoms Eyes: No Symptoms Ears, Nose, & Throat: No Symptoms Respiratory: No Symptoms Cardiac: No Symptoms Abdominal/Gastrointestinal: No Symptoms Genitourinary Symptoms: No Symptoms Musculoskeletal: Fall Skin: No Symptoms Neurological: No Symptoms Psychological: No Symptoms - Past Medical History Pertinent Past Medical History: Yes Neurological History: Other ENT History: Cataracts Cardiac History: No Pertinent History Respiratory History: No Pertinent History Endocrine Medical History: No Pertinent History Musculoskeletal History: Degenerative Disk Disease, Fractures, Osteoarthritis GI Medical History: Diverticulosis History: No Pertinent History Psycho-Social History: No Pertinent History Female Reproductive Disorders: Breast Cancer Other Medical History: HX OF SKIN CANCER, BREAST CA 23 YEARS WITH LEFT MASTECTOMY WITH RECONSTRUCTION, FX RIGHT WRIST 16-18 YEARS AGO, LEFT RCT AND SLAP LESION REPAIR 2019. Cognitive decline - memory problems - Past Surgical History Past Surgical History: Yes Neuro Surgical History: No Pertinent History Cardiac: No Pertinent History Respiratory: No Pertinent History Gastrointestinal: No Pertinent History Genitourinary: No Pertinent History Musculoskeletal: Other Female Surgical History: Mastectomy, Other Other Surgical History: LOW BACK SURGERY, ELBOW - Social History Smoking Status: Former smoker Exposure to second hand smoke: No Drug Use: none Patient Lives Alone: No - Nursing Vital Signs Nursing Vital Signs: Initial Vital Signs Temperature 97.9 F 09/01/23 13:49 Pulse Rate 72 09/01/23 13:49 Respiratory Rate 20 09/01/23 13:49 Blood Pressure 147/77 09/01/23 13:49 O2 Sat by Pulse Oximetry 100 09/01/23 13:49 Pain Scale Pain Intensity 10 - Mervin Coma Score Best Eye Response (Mervin): (4) open spontaneously Best Verbal Response ([place]): (5) oriented Best Motor Response ([place]): (6) obeys commands Mervin Total: 15 - Physical Exam General Appearance: no apparent distress, alert Head Injury: no evidence of injury Eye Exam: PERRL/EOMI ENT Exam: airway nml Neck Exam: normal inspection, No tenderness Respiratory/Chest Exam: normal breath sounds, No chest tenderness, No respiratory distress Cardiovascular Exam: normal heart sounds, regular rate/rhythm Gastrointestinal Exam: soft, No tenderness, No distention, No guarding, No ecchymosis Back Exam: normal inspection, No vertebral tenderness Extremity Exam: normal inspection, normal range of motion, pelvis stable, evidence of injury, pain with movement, No deformities, No bony point tenderness Neurologic Exam: alert, oriented x 3, cooperative, sensation nml, No motor deficits Skin Exam: normal color, warm, dry SpO2 Interpretation: normal SpO2: 100 O2 Delivery: Room Air - Course Nursing assessment & vital signs reviewed: Yes - Radiology Exams Facial X-ray Interpretation: Reviewed by me, Negative, No Fracture Shoulder X-ray Interpretation: Reviewed by me, Negative, No Fracture Chest X-ray Interpretation: Reviewed by me, Negative, No Fracture Ribs X-ray Interpretation: Reviewed by me, Negative, No Fracture Ordered Tests: Active Orders 24 hr Category Date Time Status CHEST 2 VIEWS (PA AND LAT) Stat Exams 09/01/23 13:47 Taken FACIAL BONES (MINIMUM 3 VIEWS) Stat Exams 09/01/23 13:46 Taken FEMUR Stat Exams 09/01/23 14:19 Taken RIBS UNILATERAL Stat Exams 09/01/23 13:47 Taken SHOULDER Stat Exams 09/01/23 14:13 Taken - Progress Progress: improved, pain not gone completely Counseled pt/family regarding: diagnosis, need for follow-up, rad results Medical Desision Making - Independent Historian Additional History obtained from: Spouse - Diagnostic Testing Diagnostic test were ordered, analyzed, and reviewed by me: Yes Radiological Interpretation: Interpreted by me, Reviewed by me - Risk of complications Low Risk: Low risk of morbidity from additional dx testing or treatment - Departure Departure Disposition: Home Clinical Impression: Contusion, multiple sites Fall on/from ladder Qualifiers: Encounter type: initial encounter Qualified Code(s): W11.XXXA - Fall on and from ladder, initial encounter Condition: Stable Critical Care Time: No Referrals: GARRY BEE [Primary Care Provider] - [facility] [id number] Instructions: Preventing falls in adults, Contusion (DC) Additional Instructions: Discharge/Care Plan MELISSA CERDA was seen on 09/01/23 in the Emergency Room. The patient was counseled regarding Diagnosis,Lab results, Imaging studies, need for follow up and when to return to the Emergency Room. Prescriptions given: Discharge Note I have spoken with the patient and/or caregivers. I have explained the patient's condition, diagnosis and treatment plan based on the information available to me at this time. I have answered the patient's and/or caregiver's questions and addressed any concerns. The patient and/or caregivers have as good understanding of the patient's diagnosis, condition and treatment plan as can be expected at this point. The vital signs have been stable. The patient's condition is stable and appropriate for discharge from the emergency department. The patient will pursue further outpatient evaluation with the primary care physician or other designated or consulting physician as outlined in the discharge instructions. The patient and/or caregivers are agreeable to this plan of care and follow-up instructions have been explained in detail. The patient and/or caregivers have received these instruction. The patient/and or caregivers are aware that any significant change in condition or worsening of symptoms sh ould prompt an immediate return to this or the closest emergency department or call 911. MELISSA CERDA was seen on 09/01/23 n the Emergency Room. At that time you were treated for an emergent condition, during your visit Laboratory, Radiology and/or other procedures may have been ordered. It is very important that you follow-up with your Primary Care Physician GARRY BEE within the next 24- 48 hours to review your Emergency Room visit and the final results of testing that was ordered. Some test results such as Urine Cultures, Blood Cultures, and other cultures if ordered will not be finalized for 24-48 hours. If you do not have a Primary Care Provider please call the medical records department at [phone] ext [phone] to obtain a copy of your results or you may sign into our patient portal to obtain these results by visiting us @ [email or web address] and completing the following steps: 1. Click on the Patient Portal link 2. Click the Patient Self Enrollment Link to complete the enrollment form and entering your 3. Once the enrollment form is completed you will receive an email with a temporary ID and password at the email address you provided. 4. Next choose a user name and password. Your user name must be at least 4 characters long and your password must be at least 4 characters long. 5. Choose a security question from the list and provide your answer to the question. If you already have signed into the Health Portal you may access your Health Care Information 18/06 by the following steps: 1. Login to our website @ [email or web address] 2. Enter your original user name and password. FAQS The [facility] Health Portal is an online tool that contains your Lab Results, Radiology Reports, Visit History, Discharge Instructions and Health Summary Lab and Radiology Results will not be available for 72 hours on the portal. The Portal is a secure site, passwords are encryted and URLs are re-written so they cannot be copied and pasted. You and authorized family members are the only ones who can access your Portal. Also there is a timeout feature that protects your information if you leave the Portal page open. If you have technical difficulty please use the Contact Us link on the page this will allow you to submit any questions you have regarding the Portal or you may contact the Medical Record Department at [phone]. Prescriptions: Naproxen 375 mg [Naprosyn 375 mg] 375 mg PO Q8H #30 tablet
[2023-09-01] MEDS ORDERED: TORAdol 30 mg Injection IM ONE (15:19)
[2023-09-01] MEDS ORDERED: TORAdol 30 mg Injection ONE (15:43)
[2023-09-01 16:02] VITALS: BP 138/72; PULSE 68; RESP 18; O2SAT 98
--- NOTE | 2023-09-01 19:30 | XRAY ---
Indication: Pain following fall. Comparison: December 30, 2017 PA/lateral chest hyperinflated and clear. Heart not enlarged. Bony thorax intact again with osteopenia and mild degenerative changes. Impression: Continued nonacute hyperinflated chest with chronic bony findings.
--- NOTE | 2023-09-01 19:32 | XRAY ---
Indication: Pain following fall. Comparison: None 3 view left shoulder demonstrates osteopenia, minimal glenohumeral/acromioclavicular degenerative changes, and small proximal humeral bone cyst. No other bony, articular, or soft tissue abnormalities.
--- NOTE | 2023-09-01 19:33 | XRAY ---
Indication: Pain following fall. Comparison: April 20, 2022 2 view left ribs now demonstrates tiny nondisplaced fracture anterior tip 10 rib. Stable osteopenia, mild degenerative changes throughout spine, minimal levoscoliosis, left lung base calcified granuloma, and left breast implant. Chest reported separately.
--- NOTE | 2023-09-01 19:35 | XRAY ---
Indication: Pain following fall. Comparison: None 2 view left femur demonstrates osteopenia, minimal vascular calcifications, and small uterine calcified fibroids. No other bony, articular, or soft tissue abnormalities.
--- NOTE | 2023-09-01 19:38 | XRAY ---
Indication: Pain following fall. Comparison: None 3 view facial bones demonstrates osteopenia. Paranasal sinuses and nasal passages are clear. No other bony, articular, or soft tissue abnormalities.
== END 2023-09-01 16:01 | disposition home or self-care (01) ==
LOC: ED 13:37
DX: S20.212A Contusion of left front wall of thorax, initial encounter (principal); S00.83XA Contusion of other part of head, initial encounter; S70.02XA Contusion of left hip, initial encounter; W11.XXXA Fall on and from ladder, initial encounter; Z79.899 Other long term (current) drug therapy
CPT/HCPCS: 70150; 71046; 71100; 73030; 73552; 96372; 99283; J1885

== ENCOUNTER 2023-09-19 08:39 | Emergency (ER) | payer MEDICARE, OTHER ==
--- NOTE | 2023-09-19 08:42 | ERPHSYRPT ---
- History of Present Illness Time Seen by Provider: 09/19/23 08:42 Source: patient, family Exam Limitations: no limitations Physician History: This is a 77-year-old white female patient who returns to the emergency department with right hip pain that came on this morning. She was seen here on 09/01/2023 after falling and she fell onto her and was complaining of left-sided pain in various sites. All x-rays were negative at that time. The provided additional, independent history and he states that since that date she has not fallen again. However, the pain in her right hip today is significant enough where she is having decreased range of motion and painful ambulation. Patient has a history of degenerative disc disease, osteoarthritis and dementia. She denies chest pain and she denies shortness of breath. She denies abdominal pain. Patient was taking tramadol after the fall on 09/01/2023. However, she quit taking it because she was worried about the side effects. Method of Injury: other (No new injury) Occurred: this morning Quality: constant, aching Severity of Pain-Max: moderate Severity of Pain-Current: moderate Lower Extremities Pain: hip: right Modifying Factors: Improves With: movement Associated Symptoms: other (Hurts to bear weight but can do so) Allergies/Adverse Reactions: cephalexin [From Keflex] Allergy (Intermediate, Verified 09/01/23 14:09) Hives morphine Allergy (Intermediate, Verified 09/01/23 14:09) HTN Penicillins Allergy (Intermediate, Verified 09/01/23 14:09) Hives Sulfa (Sulfonamide Antibiotics) Allergy (Intermediate, Verified 09/01/23 14:09) Hives Home Medications: Donepezil HCl 10 mg [Aricept 10 MG] 10 mg PO DAILY 09/01/23 [History] Hx Tetanus, Diphtheria Vaccination/Date Given: Yes Hx Influenza Vaccination/Date Given: Yes Hx Pneumococcal Vaccination/Date Given: Yes Travel Risk - International Travel Have you traveled outside of the country in past 3 weeks: No - Coronavirus Screening Are you exhibiting any of the following symptoms?: No Close contact with a COVID-19 positive Pt in past 14-21 Days: No - Vaccine Status Have you recieved a Covid-19 vaccination: Yes Certified Coder: Moderna - Vaccination Dates Date of 2cond Vaccination (if applicable): ? - Review of Systems Constitutional: No Symptoms Eyes: No Symptoms Ears, Nose, & Throat: No Symptoms Respiratory: No Symptoms Cardiac: No Symptoms Abdominal/Gastrointestinal: No Symptoms Genitourinary Symptoms: No Symptoms Musculoskeletal: Joint Pain Skin: No Symptoms (Right hip pain) Neurological: No Symptoms Psychological: No Symptoms Endocrine: No Symptoms Hematologic/Lymphatic: No Symptoms Immunological/Allergic: No Symptoms All Other Systems: Reviewed and Negative - Past Medical History Pertinent Past Medical History: Yes Neurological History: Other ENT History: Cataracts Cardiac History: No Pertinent History Respiratory History: No Pertinent History Endocrine Medical History: No Pertinent History Musculoskeletal History: Degenerative Disk Disease, Fractures, Osteoarthritis GI Medical History: Diverticulosis History: No Pertinent History Psycho-Social History: No Pertinent History Female Reproductive Disorders: Breast Cancer Other Medical History: HX OF SKIN CANCER, BREAST CA 23 YEARS WITH LEFT MASTECTOMY WITH RECONSTRUCTION, FX RIGHT WRIST 16-18 YEARS AGO, LEFT RCT AND SLAP LESION REPAIR 2019. Cognitive decline - memory problems - Past Surgical History Past Surgical History: Yes Neuro Surgical History: No Pertinent History Cardiac: No Pertinent History Respiratory: No Pertinent History Gastrointestinal: No Pertinent History Genitourinary: No Pertinent History Musculoskeletal: Other Female Surgical History: Mastectomy, Other Other Surgical History: LOW BACK SURGERY, ELBOW - Social History Smoking Status: Former smoker Exposure to second hand smoke: No Drug Use: none Patient Lives Alone: No - Nursing Vital Signs Nursing Vital Signs: Initial Vital Signs Temperature 98.2 F 09/19/23 08:46 Pulse Rate 83 09/19/23 08:46 Respiratory Rate 20 09/19/23 08:46 Blood Pressure 125/77 09/19/23 08:46 O2 Sat by Pulse Oximetry 96 09/19/23 08:46 Pain Scale Pain Intensity 10 - Physical Exam General Appearance: no apparent distress, alert, anxiety Eyes, Ears, Nose, Throat Exam: normal ENT inspection, moist mucous membranes Neck Exam: normal inspection, non-tender, supple, full range of motion Cardiovascular/Respiratory Exam: chest non-tender, no respiratory distress Gastrointestinal/Abdominal Exam: non-tender Back Exam: normal inspection, normal range of motion, No CVA tenderness, No vertebral tenderness Hips Exam: right: bone tenderness, soft tissue tenderness, left: non-tender, normal range of motion, bilateral: normal inspection, no evidence of injury Legs Exam: bilateral leg: non-tender, normal inspection, normal range of motion, no evidence of injury Knees Exam: bilateral knee: non-tender, normal inspection, normal range of motion, no evidence of injury Ankle Exam: bilateral ankle: non-tender, normal inspection, normal range of motion, no evidence of injury Foot Exam: bilateral foot: non-tender, normal inspection, normal range of motion, no evidence of injury Neuro/Tendon Exam: normal sensation, normal motor functions, normal tendon functions, responds to pain, no evidence tendon injury Mental Status Exam: alert, oriented x 3, cooperative Skin Exam: normal color, warm, dry SpO2 Interpretation: normal O2 Delivery: Room Air - Course Nursing assessment & vital signs reviewed: Yes Ordered Tests: Active Orders 24 hr Category Date Time Status HIP UNI (2V) INCL PEL IF DONE Stat Exams 09/19/23 08:52 Completed - Progress Progress: improved, pain not gone completely, re-examined Progress Note: 09/19/23 09:28 This patient's medical issue is 1 of low complexity. The level of complexity in the work-up performed is based on review of the patient's past medical history, review of the patient's medication list, review of the patient's drug allergy list, history of present illness and physical findings on examination. The patient has not had a subsequent fall from 09/01/2023. We will order a pelvic x- ray with x-ray of the right hip. 09/19/23 09:36 X-ray of the pelvis and right hip shows small spurring lateral head of femur. There is no evidence of any acute fracture or dislocation. Calcified uterine fibroids visualized. The x-ray was interpreted by the radiologist and I reviewed the interpretation. These findings were discussed with the patient and her spouse. Counseled pt/family regarding: diagnosis, need for follow-up, rad results Medical Desision Making - Independent Historian Additional History obtained from: Spouse - Diagnostic Testing Diagnostic test were ordered, analyzed, and reviewed by me: Yes Radiological Interpretation: Reviewed by me, Teleradiologist Report - Risk of complications The pt has a mod risk of morbidity or mortality based on: Need for prescription drug management - Departure Departure Disposition: Home Clinical Impression: Right hip pain Condition: Stable Critical Care Time: No Referrals: GARRY BEE [NON-STAFF PHY W/O PRIVILEGES] - Follow up/PCP as directed Additional Instructions: Take your medication as prescribed. Call your primary care physician today, 09/19/2023, to make arrangements for follow-up appointment for further evaluation management. Hold your naproxen and tramadol while taking your prednisone and muscle relaxer Prescriptions: Prednisone 5 mg [Deltasone 5 mg] 5 mg PO TID #12 tablet Orphenadrine Citrate 100 mg [Norflex 100 MG Tablet] 100 mg PO BID #10 tab
[2023-09-19 08:51] VITALS: RESP 20; TEMP 98.2
--- NOTE | 2023-09-19 09:29 | XRAY ---
Indication: Pain following fall 3 weeks ago. Comparison: None 2 view right hip demonstrates osteopenia, small spurring lateral femur head, and chunky calcified uterine fibroids. No other bony, articular, or soft tissue abnormalities.
[2023-09-19] MEDS ORDERED: Norflex 60 MG/2 ML IM ONE (09:40)
[2023-09-19] MEDS ORDERED: solu-MEDROL 80 MG, Sterile H2O 10 ml 2 ML IM ONE ×2 (09:40)
[2023-09-19 09:44] VITALS: BP 135/73; PULSE 75; O2SAT 93
[2023-09-19] MEDS ORDERED: Sterile H2O 10 ml IJ ONE (09:46)
[2023-09-19] MEDS ORDERED: solu-MEDROL ONE (09:47)
[2023-09-19] MEDS ORDERED: Norflex 60 MG/2 ML ONE (09:47)
== END 2023-09-19 10:10 | disposition home or self-care (01) ==
LOC: ED 08:39
DX: M25.551 Pain in right hip (principal); Z79.52 Long term (current) use of systemic steroids; Z79.899 Other long term (current) drug therapy
CPT/HCPCS: 73502; 96372; 99283; J2360; J2930

== ENCOUNTER 2025-03-31 11:00 | Emergency (ER) | payer MEDICARE, OTHER ==
[2025-03-31 11:18] VITALS: TEMP 97.2
[2025-03-31] MEDS ORDERED: Sodium Chloride 0.9% 1000 ML 1,000 ML ONE (11:33)
[2025-03-31] MEDS: Sodium Chloride 0.9% 1000 ML 1,000 ML IV SCH (11:34)
--- NOTE | 2025-03-31 11:35 | ERPHSYRPT ---
- History of Present Illness Time Seen by Provider: 03/31/25 11:31 Source: patient Exam Limitations: no limitations Patient Subjective Stated Complaint: Pt states "On sunday I fell off the chair and the chair was wet with urine. I fell again in the bathroom and hit my head. The back of my head, hip and neck are hurting. I went into therapy today to get therapy on my neck and they told me to come down here. I am a little weaker than normal." Triage Nursing Assessment: Pt presented alert and oriented X 3, skin pwd. Pt ambulates with a slow shaky gait, able to speak in clear full sentences. Pt resting comfortably on the bed. Physician History: Patient is a 79-year-old female history of dementia on donezepil presents to our emergency department as a referral from physical therapy for evaluation of generalized weakness and a fall 2 days ago. Patient fell off of a chair and hit hit the back of her head. Patient complains of posterior head pain, neck pain and left hip pain. Patient states her neck pain is chronic. She is currently undergoing physical therapy for the ongoing neck pain. No loss of consciousness. However is at the bedside. He is concerned that patient appears weak. She had an episode of confusion and incontinence at that time. Patient is currently at her baseline. Patient denies chest pain. No nausea vomiting or diaphoresis. No rash. Patient voices no other complaints or concerns at this time. Pt states "On sunday I fell off the chair and the chair was wet with urine. I fell again in the bathroom and hit my head. The back of my head, hip and neck are hurting. I went into therapy today to get therapy on my neck and they told me to come down here. I am a little weaker than normal." Pt presented alert and oriented X 3, skin pwd. Pt ambulates with a slow shaky gait, able to speak in clear full sentences. Pt resting comfortably on the bed. Timing/Duration: today Severity: moderate Associated Symptoms: denies symptoms Allergies/Adverse Reactions: cephalexin [From Keflex] Allergy (Intermediate, Verified 09/01/23 14:09) Hives morphine Allergy (Intermediate, Verified 09/01/23 14:09) HTN Penicillins Allergy (Intermediate, Verified 09/01/23 14:09) Hives Sulfa (Sulfonamide Antibiotics) Allergy (Intermediate, Verified 09/01/23 14:09) Hives Home Medications: Donepezil HCl 10 mg [Aricept 10 MG] 10 mg PO DAILY 09/01/23 [History] Hx Tetanus, Diphtheria Vaccination/Date Given: Yes Hx Influenza Vaccination/Date Given: Yes Hx Pneumococcal Vaccination/Date Given: No Immunizations Up to Date: No Travel Risk - International Travel Have you traveled outside of the country in past 3 weeks: No - Emerging Infectious Disease Are you exhibiting symptoms associated with any current EIDs: No - Review of Systems Constitutional: No Symptoms, No Fever, No Chills Eyes: No Symptoms Ears, Nose, & Throat: No Symptoms Respiratory: No Symptoms, No Cough, No Dyspnea Cardiac: No Symptoms, No Chest Pain, No Edema, No Syncope Abdominal/Gastrointestinal: No Symptoms, No Abdominal Pain, No Nausea, No Vomiting, No Diarrhea Genitourinary Symptoms: No Symptoms, No Dysuria Musculoskeletal: No Symptoms, No Back Pain, No Neck Pain Skin: No Symptoms, No Rash Neurological: No Symptoms, No Dizziness, No Focal Weakness, No Sensory Changes Psychological: No Symptoms Endocrine: No Symptoms Hematologic/Lymphatic: No Symptoms Immunological/Allergic: No Symptoms All Other Systems: Reviewed and Negative - Past Medical History Pertinent Past Medical History: Yes Neurological History: No Pertinent History ENT History: Cataracts Cardiac History: Other Respiratory History: No Pertinent History Endocrine Medical History: No Pertinent History Musculoskeletal History: Degenerative Disk Disease, Fractures, Osteoarthritis GI Medical History: Diverticulosis History: No Pertinent History Psycho-Social History: No Pertinent History Female Reproductive Disorders: Breast Cancer Other Medical History: LOW BLOOD PRESSURE - Past Surgical History Past Surgical History: Yes Neuro Surgical History: No Pertinent History Cardiac: No Pertinent History Respiratory: No Pertinent History Gastrointestinal: No Pertinent History Genitourinary: No Pertinent History Musculoskeletal: Other Female Surgical History: Mastectomy, Other Other Surgical History: LOW BACK SURGERY, ELBOW - Social History Smoking Status: Former smoker Exposure to second hand smoke: Yes Drug Use: none - Social Determinants of Health Will the patient participate in the screening: Declined to provide - Nursing Vital Signs Nursing Vital Signs: Initial Vital Signs Temperature 97.2 F 03/31/25 11:10 Pulse Rate 80 03/31/25 11:10 Respiratory Rate 18 03/31/25 11:10 Blood Pressure 157/73 03/31/25 11:10 O2 Sat by Pulse Oximetry 96 03/31/25 11:10 Pain Scale Pain Intensity 0 - Physical Exam General Appearance: no apparent distress, alert Eye Exam: PERRL/EOMI, eyes nml inspection Ears, Nose, Throat Exam: normal ENT inspection, TMs normal, pharynx normal, moist mucous membranes Neck Exam: normal inspection, non-tender, supple, full range of motion, other (Mild posterior C-spine tenderness) Respiratory Exam: normal breath sounds, lungs clear, No respiratory distress Cardiovascular Exam: regular rate/rhythm, normal heart sounds, normal peripheral pulses Gastrointestinal/Abdomen Exam: soft, normal bowel sounds, No tenderness, No mass Back Exam: normal inspection, normal range of motion, No CVA tenderness, No vertebral tenderness Extremity Exam: normal inspection, normal range of motion, pelvis stable Neurologic Exam: alert, oriented x 3, cooperative, normal mood/affect, nml cerebellar function, nml station & gait, sensation nml, other (Tenderness to palpation left hip. Tenderness to palpation posterior head near her occiput), No motor deficits Skin Exam: normal color, warm, dry, No rash Lymphatic Exam: No adenopathy SpO2 Interpretation: normal SpO2: 96 O2 Delivery: Room Air - Course Nursing assessment & vital signs reviewed: Yes EKG Interpreted by Me: RATE (78), Sinus Rhythm, Left [place] Deviation, NORMAL INTERVALS, NORMAL QRS - CT Exams Lower Extremity CT Interpretation: Tele-radiologist Report (CT left hip negative for fracture dislocation chronic findings including osteopenia and degenerative joint disease) Head CT Interpretation: Tele-radiologist Report (Remote right lacunar infarct thalamus, incidental right maxillary sinus disease. Nonacute senile brain) Cervical Spine CT Interpretation: Tele-radiologist Report (No fracture or dislocations. Chronic findings) Ordered Tests: Active Orders 24 hr Category Date Time Status Tech Brazer Tester STAT Care 03/31/25 11:27 Active EKG-ER Only STAT Care 03/31/25 11:26 Active IV Insertion STAT Care 03/31/25 11:26 Active Pulse Oximetry (ED) STAT Care 03/31/25 11:26 Active CERVICAL SPINE WO CONTRAST [CT] Stat Exams 03/31/25 11:28 Completed HEAD WITHOUT CONTRAST [CT] Stat Exams 03/31/25 11:28 Completed LOWER EXTREMITY WO CONTRAST [CT] Stat Exams 03/31/25 11:28 Completed CBC W DIFF Stat Lab 03/31/25 11:35 Completed CMP Stat Lab 03/31/25 11:35 Completed CMP Stat Lab 03/31/25 16:40 Completed CULTURE,URINE Stat Lab 03/31/25 11:35 Received TROPONIN Q4H Lab 03/31/25 11:35 Completed TROPONIN Q4H Lab 03/31/25 14:35 Completed TROPONIN Q4H Lab 03/31/25 16:40 Completed UA W/RFX UR CULTURE Stat Lab 03/31/25 11:35 Completed Medication Summary Generic Name Dose Route Start Last Admin Trade Name Freq PRN Reason Stop Dose Admin Sodium Chloride 1,000 mls @ 50 mls/hr 03/31/25 11:30 03/31/25 11:34 Sodium Chloride 0.9% 1000 Ml IV 04/30/25 11:29 50 mls/hr .Q20H MARTÍNEZ Administration Discontinued Medications Generic Name Dose Route Start Last Admin Trade Name Freq PRN Reason Stop Dose Admin Clindamycin HCl 300 mg 03/31/25 15:25 Clindamycin Hcl 150 Mg Capsule PO 03/31/25 15:26 STAT ONE Ketorolac Tromethamine 30 mg 03/31/25 14:40 03/31/25 14:47 Ketorolac Tromethamine 30 Mg/Ml Inj IV 03/31/25 14:41 30 mg STAT ONE Administration Ketorolac Tromethamine Confirm 03/31/25 14:45 Ketorolac Tromethamine 30 Mg/Ml Inj Administered 03/31/25 14:46 Dose 30 mg .ROUTE .STK-MED ONE Ketorolac Tromethamine 30 mg 03/31/25 15:24 03/31/25 15:32 Ketorolac Tromethamine 30 Mg/Ml Inj IM 03/31/25 15:25 Not Given STAT ONE Ketorolac Tromethamine Confirm 03/31/25 15:27 Ketorolac Tromethamine 30 Mg/Ml Inj Administered 03/31/25 15:28 Dose 30 mg .ROUTE .STK-MED ONE Lab/Rad Data: Laboratory Result Diagrams 03/31/25 11:35 03/31/25 16:40 Laboratory Results 03/31/25 03/31/25 03/31/25 Range/Units 16:40 16:40 14:35 WBC (3.98-10.04) x10^3/uL RBC (3.93-5.22) x10^6/uL Hgb (11.2-15.7) g/dL Hct (34.1-44.9) % MCV (79.4-94.8) fL MCH (25.6-32.2) pg MCHC (32.2-35.5) g/dL RDW (11.7-14.4) % Plt Count (182-369) x10^3/uL MPV (9.4-12.3) fL Gran % (34.0-71.1) % Immature Gran % (Auto) (0.001-0.429) % Nucleat RBC Rel Count (0.00-0.2) % Eos # (Auto) (0.04-0.36) x10^3/uL Immature Gran # (Auto) (0.001-0.031) x10^3u/L Absolute Lymphs (auto) (1.18-3.74) x10^3/uL Absolute Monos (auto) (0.24-0.86) x10^3/uL Absolute Nucleated RBC (0.00-0.012) x10^3u/L Lymphocytes % (19.3-51.7) % Monocytes % (4.7-12.5) % Eosinophils % (0.7-5.8) % Basophils % (0.1-1.2) % Absolute Granulocytes (1.56-6.13) x10^3/uL Basophils # (0.01-0.08) x10^3/uL Sodium 141 (135-145) mmol/L Potassium 4.1 (3.5-5.1) mmol/L Chloride 110 H (98-107) mmol/L Carbon Dioxide 19 L (22-30) mmol/L Anion Gap 15.1 H (5-15) MEQ/L BUN 15 (7-17) mg/dL Creatinine 0.69 (0.52-1.04) mg/dL Estimated GFR 88.2 ML/MIN Glucose 108 H (74-106) mg/dL Calcium 8.8 (8.4-10.2) mg/dL Total Bilirubin 0.80 (0.2-1.3) mg/dL AST 25 (14-36) U/L ALT 11 (0-35) U/L Alkaline Phosphatase 73 (38-126) U/L Troponin I < 0.012 < 0.012 (0.000-0.033) ng/mL Serum Total Protein 6.6 (6.3-8.2) g/dL Albumin 3.7 (3.5-5.0) g/dL Urine Color (Yellow) Urine Appearance (Clear) Urine pH (4.6-8.0) Ur Specific [place] (1.005-1.030) Urine Protein (Negative) Urine Glucose (UA) (Negative) mg/dL Urine Ketones (Negative) Urine Blood (Negative) Urine Nitrite (Negative) Urine Bilirubin (Negative) Urine Urobilinogen (0.2) mg/dL Ur Leukocyte Esterase (Negative) U Hyaline Cast (Auto) (0-2) /LPF Urine Microscopic RBC (0-5) /HPF Urine Microscopic WBC (0-5) /HPF Ur Epithelial Cells (None Seen) /HPF Urine Bacteria (None Seen) /HPF Urine Culture Reflexed (NO) 03/31/25 03/31/25 03/31/25 Range/Units 11:35 11:35 11:35 WBC (3.98-10.04) x10^3/uL RBC (3.93-5.22) x10^6/uL Hgb (11.2-15.7) g/dL Hct (34.1-44.9) % MCV (79.4-94.8) fL MCH (25.6-32.2) pg MCHC (32.2-35.5) g/dL RDW (11.7-14.4) % Plt Count (182-369) x10^3/uL MPV (9.4-12.3) fL Gran % (34.0-71.1) % Immature Gran % (Auto) (0.001-0.429) % Nucleat RBC Rel Count (0.00-0.2) % Eos # (Auto) (0.04-0.36) x10^3/uL Immature Gran # (Auto) (0.001-0.031) x10^3u/L Absolute Lymphs (auto) (1.18-3.74) x10^3/uL Absolute Monos (auto) (0.24-0.86) x10^3/uL Absolute Nucleated RBC (0.00-0.012) x10^3u/L Lymphocytes % (19.3-51.7) % Monocytes % (4.7-12.5) % Eosinophils % (0.7-5.8) % Basophils % (0.1-1.2) % Absolute Granulocytes (1.56-6.13) x10^3/uL Basophils # (0.01-0.08) x10^3/uL Sodium 142 (135-145) mmol/L Potassium 3.7 (3.5-5.1) mmol/L Chloride 106 (98-107) mmol/L Carbon Dioxide 19 L (22-30) mmol/L Anion Gap 21.0 H (5-15) MEQ/L BUN 17 (7-17) mg/dL Creatinine 0.64 (0.52-1.04) mg/dL Estimated GFR 89.8 ML/MIN Glucose 90 (74-106) mg/dL Calcium 9.5 (8.4-10.2) mg/dL Total Bilirubin 0.90 (0.2-1.3) mg/dL AST 39 H (14-36) U/L ALT 20 (0-35) U/L Alkaline Phosphatase 66 (38-126) U/L Troponin I < 0.012 (0.000-0.033) ng/mL Serum Total Protein 8.0 (6.3-8.2) g/dL Albumin 4.6 (3.5-5.0) g/dL Urine Color Dark Yellow A (Yellow) Urine Appearance Clear (Clear) Urine pH 5.5 (4.6-8.0) Ur Specific [place] 1.025 (1.005-1.030) Urine Protein 30 (Negative) Urine Glucose (UA) Negative (Negative) mg/dL Urine Ketones Trace A (Negative) Urine Blood Negative (Negative) Urine Nitrite Negative (Negative) Urine Bilirubin Negative (Negative) Urine Urobilinogen 1.0 A (0.2) mg/dL Ur Leukocyte Esterase Small A (Negative) U Hyaline Cast (Auto) NONE SEEN (0-2) /LPF Urine Microscopic RBC 0-2 (0-5) /HPF Urine Microscopic WBC 3-5 (0-5) /HPF Ur Epithelial Cells Rare (None Seen) /HPF Urine Bacteria None Seen (None Seen) /HPF Urine Culture Reflexed YES (NO) 05/06/25 Range/Units 11:35 WBC 9.7 (3.98-10.04) x10^3/uL RBC 4.56 (3.93-5.22) x10^6/uL Hgb 14.1 (11.2-15.7) g/dL Hct 42.9 (34.1-44.9) % MCV 94.1 (79.4-94.8) fL MCH 30.9 (25.6-32.2) pg MCHC 32.9 (32.2-35.5) g/dL RDW 14.6 H (11.7-14.4) % Plt Count 272 (182-369) x10^3/uL MPV 10.0 (9.4-12.3) fL Gran % 73.0 H (34.0-71.1) % Immature Gran % (Auto) 0.4 (0.001-0.429) % Nucleat RBC Rel Count 0.0 (0.00-0.2) % Eos # (Auto) 0.10 (0.04-0.36) x10^3/uL Immature Gran # (Auto) 0.04 H (0.001-0.031) x10^3u/L Absolute Lymphs (auto) 1.44 (1.18-3.74) x10^3/uL Absolute Monos (auto) 0.97 H (0.24-0.86) x10^3/uL Absolute Nucleated RBC 0.00 (0.00-0.012) x10^3u/L Lymphocytes % 14.9 L (19.3-51.7) % Monocytes % 10.0 (4.7-12.5) % Eosinophils % 1.0 (0.7-5.8) % Basophils % 0.7 (0.1-1.2) % Absolute Granulocytes 7.07 H (1.56-6.13) x10^3/uL Basophils # 0.07 (0.01-0.08) x10^3/uL Sodium (135-145) mmol/L Potassium (3.5-5.1) mmol/L Chloride (98-107) mmol/L Carbon Dioxide (22-30) mmol/L Anion Gap (5-15) MEQ/L BUN (7-17) mg/dL Creatinine (0.52-1.04) mg/dL Estimated GFR ML/MIN Glucose (74-106) mg/dL Calcium (8.4-10.2) mg/dL Total Bilirubin (0.2-1.3) mg/dL AST (14-36) U/L ALT (0-35) U/L Alkaline Phosphatase (38-126) U/L Troponin I (0.000-0.033) ng/mL Serum Total Protein (6.3-8.2) g/dL Albumin (3.5-5.0) g/dL Urine Color (Yellow) Urine Appearance (Clear) Urine pH (4.6-8.0) Ur Specific [place] (1.005-1.030) Urine Protein (Negative) Urine Glucose (UA) (Negative) mg/dL Urine Ketones (Negative) Urine Blood (Negative) Urine Nitrite (Negative) Urine Bilirubin (Negative) Urine Urobilinogen (0.2) mg/dL Ur Leukocyte Esterase (Negative) U Hyaline Cast (Auto) (0-2) /LPF Urine Microscopic RBC (0-5) /HPF Urine Microscopic WBC (0-5) /HPF Ur Epithelial Cells (None Seen) /HPF Urine Bacteria (None Seen) /HPF Urine Culture Reflexed (NO) - Progress Progress: improved Progress Note: 79-year-old female history of dementia presents to our ED for evaluation of generalized weakness. Patient fell and hit her head 2 days ago. Patient was in physical therapy today for her neck. Physical therapy advised patient come to our ED due to weakness. The fall was not associated with any neuro or cardiovascular symptomology. No chest pain or shortness of breath. No nausea vomiting or diaphoresis. No numbness tingling or weakness. Upon arrival patient complained of pain to her left hip posterior occiput and neck. Physical exam otherwise unremarkable. CT head C-spine and hip negative for fracture/ dislocation. IV fluids infused. Patient reassessed. She feels significantly better. Initial lab revealed an elevated anion gap Repeat lab ordered after IV fluid administration. Toradol administered for pain control. Pain significantly improved. Patient states he is ready for discharge. at bedside. They voiced no other complaints or concerns at this time. Patient agrees to follow-up with primary care doctor within 48 hours for reevaluation. They voiced no other complaints or concerns at this time. Portions of this note were created with voice recognition technology. There may be grammatical, spelling, punctuation or sound alike errors 03/31/25 17:12 Complexity of problem addressed is moderate acute complicated. No critical care time. Complex of data reviewed and analyzed as moderate. Test ordered test reviewed results analyzed and correlated clinically with history and physical exam. Risk of complication and or risk of morbidity/mortality of patient management is low. Vital stable. Time spent to discharge patient is approximately 15 minutes. Plan of care established for shared decision making. No social determinants of health present to impede follow-up. Vital stable. Time spent to discharge patient is approximately 15 minutes. Plan of care established for shared decision making. No social determinants of health present to impede follow-up. Portions of this note were created with voice recognition technology. There may be grammatical, spelling, punctuation or sound alike errors 03/31/25 17:14 03/31/25 17:18 Counseled pt/family regarding: lab results, diagnosis, need for follow-up, rad results - Departure Departure Disposition: Home Clinical Impression: Fall, Contusion, hip, Cervical sprain, Posterior scalp contusion, Dehydration Condition: Stable Critical Care Time: No Referrals: GABE KERR [Primary Care Provider, UNKNOWN] - Follow up/PCP as directed Additional Instructions: Discharge/Care Plan CERDAMELISSA LEDBETTER was seen on 03/31/25 in the Emergency Room. The patient was counseled regarding Diagnosis,Lab results, Imaging studies, need for follow up and when to return to the Emergency Room. Prescriptions given: Discharge Note I have spoken with the patient and/or caregivers. I have explained the patient's condition, diagnosis and treatment plan based on the information available to me at this time. I have answered the patient's and/or caregiver's questions and addressed any concerns. The patient and/or caregivers have as good understanding of the patient's diagnosis, condition and treatment plan as can be expected at this point. The vital signs have been stable. The patient's condition is stable and appropriate for discharge from the emergency department. The patient will pursue further outpatient evaluation with the primary care physician or other designated or consulting physician as outlined in the discharge instructions. The patient and/or caregivers are agreeable to this plan of care and follow-up instructions have been explained in detail. The patient and/or caregivers have received these instruction. The patient/and or caregivers are aware that any significant change in condition or worsening of symptoms should prompt an immediate return to this or the closest emergency department or call 911. Prescriptions: Ketorolac Trometh 10 mg Tab [TORAdol 10 MG TABLET] 10 mg PO TID 5 Days #15 tablet
[2025-03-31 11:44] LABS: Absolute Neutrophil Ct (ANC) 7.07 x10^3/uL (1.56-6.13); BASOPHIL % 0.7 % (0.1-1.2); Basophil (Absolute #) 0.07 x10^3/uL (0.01-0.08); Hematocrit 42.9 % (34.1-44.9); Hemoglobin 14.1 g/dL (11.2-15.7); IMMATURE GRAN # 0.04 x10^3u/L (0.001-0.031); IMMATURE GRAN % 0.4 % (0.001-0.429); Lymphocyte (Absolute #) 1.44 x10^3/uL (1.18-3.74); Lymphocytes % 14.9 % (19.3-51.7); Mean Cell Volume 94.1 fL (79.4-94.8); Mean Corpuscular Hemoglobin 30.9 pg (25.6-32.2); Mean Corpuscular Hgb Concent. 32.9 g/dL (32.2-35.5); Monocyte (Absolute #) 0.97 x10^3/uL (0.24-0.86); Platelet Count 272 x10^3/uL (182-369); Red Blood Count 4.56 x10^6/uL (3.93-5.22); Red Cell Distribution Width 14.6 % (11.7-14.4); White Blood Count 9.7 x10^3/uL (3.98-10.04)
[2025-03-31 11:58] LABS: ALBUMIN 4.6 g/dL (3.5-5.0); BILIRUBIN,TOTAL 0.9 mg/dL (0.2-1.3); Calcium 9.5 mg/dL (8.4-10.2); Creatinine 1 0.64 mg/dL (0.52-1.04); EST GLOMERULAR FILTRATION RATE 89.8 ML/MIN
[2025-03-31 12:00] LABS: Potassium 3.7 mmol/L (3.5-5.1)
[2025-03-31 12:01] LABS: Appearance Clear (Clear); Bacteria None Seen /HPF (None Seen); Bilirubin Negative (Negative); Blood Negative (Negative); Epithelial Cells Rare /HPF (None Seen); Glucose, Urine Negative (Negative); Hyaline Casts NONE SEEN /LPF (0-2); Ketones Trace (Negative); Leukocyte Esterase Small (Negative); Nitrite Negative (Negative); Ph 5.5 (4.6-8.0); Protein,Urine Dip 30 (Negative); RBC 0-2 /HPF (0-5); Specific Gravity 1.025 (1.005-1.030)
--- NOTE | 2025-03-31 13:43 | XRAY ---
Indication: Head injury following fall 2 days ago. Multiple contiguous axial images obtained through the head without contrast. Comparison: None Age-appropriate global atrophy and mild periventricular degenerative micro-ischemia bilaterally. Remote lacunar infarct right thalamus. No acute intracranial hemorrhage, abnormal extra-axial fluid collection, or mass effect. Fourth ventricle is midline without hydrocephalus. Bony calvarium intact. Near complete opacification right maxillary sinus with fluid leveling. Mastoid air cells are clear. Impression: Nonacute senile brain. Remote lacunar infarct right thalamus. Incidental right maxillary sinus disease.
--- NOTE | 2025-03-31 13:45 | XRAY ---
Indication: Neck pain 3 months. Head injury following fall 2 days ago. Multiple contiguous axial images obtained through the cervical spine. Sagittal and coronal reformatted images obtained. Comparison: None. Osseous structures demineralized consistent with patient's age. Axial images negative for acute fracture, suspicious bony lesions, or spinal canal stenosis. Minimal C5-C6 broad-based disc osteophyte. Also mild atlantoaxial and mild right C3-C5 degenerative facet arthropathy. Sagittal and coronal reformatted images demonstrates mild levoscoliosis centered at T1 and C5-C6 disc space narrowing. No acute compression fracture, subluxation, or jumped facet. Normal appearing craniocervical junction. Visualized noncontrasted soft tissues demonstrate minimal bilateral carotid calcifications. Lung apices demonstrates left apical pleural thickening. Impression: 1. Negative acute fracture/subluxation. 2. Chronic findings including osteopenia, multilevel degenerative spondylosis, levoscoliosis, bilateral carotid calcifications, and left apical pleural thickening.
--- NOTE | 2025-03-31 13:49 | XRAY ---
Indication: Pain following fall 2 days ago. Multiple contiguous images obtained through the left hip. Sagittal and coronal reformatted images obtained. Comparison: None Osseous structures demineralized. Mild degenerative joint space narrowing with faint degenerative chondrocalcinosis. No acute fracture, dislocation, or suspicious bony lesions. Visualized noncontrasted soft tissues demonstrates sigmoid diverticulosis. Impression: Osteopenia, left hip degenerative arthropathy, and sigmoid diverticulosis. Remaining CT left hip is negative.
[2025-03-31] MEDS ORDERED: TORAdol 30 mg Injection ONE ×2 (14:45→15:27)
[2025-03-31] MEDS: TORAdol 30 mg Injection IV ONE (14:47)
[2025-03-31] MEDS ORDERED: CLEOCIN 150 MG CAPSULE PO ONE (15:25)
[2025-03-31] MEDS: TORAdol 30 mg Injection IM ONE (15:32)
[2025-03-31 16:20] VITALS: BP 140/78; PULSE 72; RESP 18
[2025-03-31 16:59] LABS: ALBUMIN 3.7 g/dL (3.5-5.0); ANION GAP 15.1 MEQ/L (5-15); BILIRUBIN,TOTAL 0.8 mg/dL (0.2-1.3); Calcium 8.8 mg/dL (8.4-10.2); Creatinine 1 0.69 mg/dL (0.52-1.04); EST GLOMERULAR FILTRATION RATE 88.2 ML/MIN; Potassium 4.1 mmol/L (3.5-5.1); Total Protein 6.6 g/dL (6.3-8.2)
[2025-03-31 17:14] VITALS: O2SAT 96
== END 2025-03-31 17:35 | disposition home or self-care (01) ==
LOC: ED 11:00
DX: S70.02XA Contusion of left hip, initial encounter (principal); S00.03XA Contusion of scalp, initial encounter; S13.9XXA Sprain of joints and ligaments of unspecified parts of neck, initial encounter; W07.XXXA Fall from chair, initial encounter; R53.1 Weakness; Z79.899 Other long term (current) drug therapy
CPT/HCPCS: 36415; 70450; 72125; 73700; 80053; 81001; 84484; 85025; 87077; 87086; 87186; 93005; 93041; 94760; 96374; 99285; J1885